=== PATIENT | female | born 1965 | race Caucasian/White ===

== ENCOUNTER → 2017-05-15 | Outpatient (REF) | payer BC ==
[2017-05-15 12:37] LABS: HEMATOCRIT 38.3 % (36.0-47.0); HEMOGLOBIN 12.7 g/dl (12.0-16.0); MEAN CORPUSCULAR HEMOGLOBIN 31.6 pg (27.0-33.0); MEAN CORPUSCULAR HGB CONC 33.2 g/dl (32.0-36.5); MEAN CORPUSCULAR VOLUME 95.3 fl (80.0-96.0); PLATELET COUNT, AUTOMATED 255 10^3/uL (150-450); RED BLOOD COUNT 4.02 10^6/uL (4.00-5.40); RED CELL DISTRIBUTION WIDTH 13.3 % (11.5-14.5); WHITE BLOOD COUNT 6.5 10^3/uL (4.0-10.0)
[2017-05-15 13:07] LABS: ALBUMIN 3.7 GM/DL (3.2-5.2); ALBUMIN/GLOBULIN RATIO 1.12 (1.00-1.93); ALKALINE PHOSPHATASE 105 U/L (45-117); ALT/SGPT 31 U/L (12-78); ANION GAP 5 MEQ/L (8-16); AST/SGOT 19 U/L (7-37); BILIRUBIN,TOTAL 0.6 MG/DL (0.2-1.0); BLOOD UREA NITROGEN 20 MG/DL (7-18); CALCIUM LEVEL 8.9 MG/DL (8.5-10.1); CARBON DIOXIDE LEVEL 29 MEQ/L (21-32); CHLORIDE LEVEL 104 MEQ/L (98-107); CHOLESTEROL LEVEL 155 MG/DL (<200); CHOLESTEROL RISK RATIO 2.152 (<5); CREATININE FOR GFR 0.92 MG/DL (0.55-1.30); FREE T4 0.88 NG/DL (0.76-1.46); GLOMERULAR FILTRATION RATE > 60.0 (>51); GLUCOSE, FASTING 100 MG/DL (70-100); HDL CHOLESTEROL 72 MG/DL (>40); LDL CHOLESTEROL 65.4 MG/DL (<100); NON-HDL-C 83 MG/DL; POTASSIUM SERUM 4.5 MEQ/L (3.5-5.1); SODIUM LEVEL 138 MEQ/L (136-145); TRIGLYCERIDES LEVEL 88 MG/DL (<150)
[2017-05-15 13:26] LABS: ESTIMATED AVERAGE GLUCOSE 111 MG/DL (60-110); HEMOGLOBIN A1c 5.5 %
[2017-05-15 14:09] LABS: CREATININE, URINE 61.2 MG/DL; MALB URINE SIEMENS < 5.0 MG/L; MAU/CREAT RATIO 8.1 MCG/MG (0.0-30.0)
== END ==
LOC: M SFHCADAM 09:58
DX: R73.01 Impaired fasting glucose (principal); I48.2 Chronic atrial fibrillation; Z86.73 Personal history of transient ischemic attack (TIA), and cerebral infarction without residual deficits; I10 Essential (primary) hypertension
CPT/HCPCS: 84443

== ENCOUNTER → 2017-05-20 | Outpatient (CLI) | payer BC | LOC: M ADAMS 15:24 | DX: M25.741 Osteophyte, right hand (principal); M25.731 Osteophyte, right wrist; S69.91XA Unspecified injury of right wrist, hand and finger(s), initial encounter; X58.XXXA Exposure to other specified factors, initial encounter; Y92.9 Unspecified place or not applicable | CPT/HCPCS: 73110 ==

== ENCOUNTER → 2017-11-06 | Outpatient (REF) | payer BC ==
[2017-11-06 13:53] LABS: ALBUMIN 3.5 GM/DL (3.2-5.2); ALBUMIN/GLOBULIN RATIO 1.03 (1.00-1.93); ALKALINE PHOSPHATASE 105 U/L (45-117); ALT/SGPT 29 U/L (12-78); ANION GAP 11 MEQ/L (8-16); AST/SGOT 21 U/L (7-37); BILIRUBIN,TOTAL 0.9 MG/DL (0.2-1.0); BLOOD UREA NITROGEN 16 MG/DL (7-18); CALCIUM LEVEL 8.7 MG/DL (8.5-10.1); CARBON DIOXIDE LEVEL 24 MEQ/L (21-32); CHLORIDE LEVEL 103 MEQ/L (98-107); CREATININE FOR GFR 0.81 MG/DL (0.55-1.30); FREE T4 0.95 NG/DL (0.76-1.46); GLOMERULAR FILTRATION RATE > 60.0 (>51); GLUCOSE, FASTING 100 MG/DL (70-100); POTASSIUM SERUM 4.6 MEQ/L (3.5-5.1); SODIUM LEVEL 138 MEQ/L (136-145); TOTAL PROTEIN 6.9 GM/DL (6.4-8.2)
== END ==
LOC: M SFHCADAM 07:47
DX: S69.91XA Unspecified injury of right wrist, hand and finger(s), initial encounter (principal); E03.9 Hypothyroidism, unspecified; I10 Essential (primary) hypertension; I48.2 Chronic atrial fibrillation; X58.XXXA Exposure to other specified factors, initial encounter; Y92.9 Unspecified place or not applicable
CPT/HCPCS: 84443

== ENCOUNTER → 2018-04-07 | Outpatient (REF) | payer BC ==
[~2018-04-07] MED LIST: ALBU17IN INH; AMIO200T PO; ANOR1AER INH; ATOR80TA59 PO; BUPR150T5 PO; CARV25TA PO; CARV6.25 PO; CETI10TA PO; DRIS50003 PO; ELIQ5TAB PO; ESCI10TA2 PO; FLEC10TA PO; FLUT11IN INH; FURO20TA2 PO; LEVA1TAB2 PO; LISI10TA4 PO; MONT10TA2 PO; VITA100067 PO; VITATAB11 PO
[2018-04-07 13:29] LABS: CREATININE, URINE 91.9 MG/DL; MALB URINE SIEMENS 6.1 MG/L; MAU/CREAT RATIO 6.6 MCG/MG (0.0-30.0)
[2018-04-07 13:31] LABS: HEMOGLOBIN A1c 5.8 %
[2018-04-07 13:33] LABS: ALBUMIN 3.9 GM/DL (3.2-5.2); ALT/SGPT 27 U/L (12-78); BILIRUBIN,TOTAL 0.7 MG/DL (0.2-1.0); BLOOD UREA NITROGEN 23 MG/DL (7-18); CARBON DIOXIDE LEVEL 29 MEQ/L (21-32); CHLORIDE LEVEL 103 MEQ/L (98-107); CHOLESTEROL LEVEL 154 MG/DL (<200); CHOLESTEROL RISK RATIO 2.483 (<5); CREATININE FOR GFR 0.87 MG/DL (0.55-1.30); FREE T4 1.17 NG/DL (0.76-1.46); GLOMERULAR FILTRATION RATE > 60.0 (>51); GLUCOSE, FASTING 107 MG/DL (70-100); HDL CHOLESTEROL 62 MG/DL (>40); LDL CHOLESTEROL 76 MG/DL (<100); NON-HDL-C 92 MG/DL; SODIUM LEVEL 137 MEQ/L (136-145); TOTAL PROTEIN 7.1 GM/DL (6.4-8.2); TRIGLYCERIDES LEVEL 82 MG/DL (<150)
== END ==
LOC: M SFHCADAM 09:00
PROVIDERS: ATTEND Physician Assistant
DX: I48.2 Chronic atrial fibrillation (principal); I10 Essential (primary) hypertension; E03.9 Hypothyroidism, unspecified; R73.01 Impaired fasting glucose

== ENCOUNTER → 2018-04-13 | Outpatient (REF) | payer BC ==
[2018-04-13 18:14] LABS: APPEARANCE, URINE CLEAR (CLEAR); BACTERIA, URINE AUTO NEGATIVE (NEGATIVE); BILIRUBIN, URINE AUTO NEGATIVE (NEGATIVE); BLOOD, URINE BLOOD NEGATIVE (NEGATIVE); COLOR, URINE YELLOW (YELLOW); GLUCOSE, URINE (UA) AUTO NEGATIVE (NEGATIVE); KETONE, URINE AUTO NEGATIVE (NEGATIVE); LEUKOCYTE ESTERASE, URINE AUTO NEGATIVE (NEGATIVE); NITRITE, URINE AUTO NEGATIVE (NEGATIVE); PROTEIN, URINE AUTO NEGATIVE (NEGATIVE); RBC, URINE AUTO 1 /HPF (0-3); SPECIFIC GRAVITY URINE AUTO 1.002 (1.002-1.035); SQUAMOUS EPITHELIAL CELL UR AU 0 /HPF (0-6); UROBILINOGEN, URINE AUTO 0.2 mg/dL (0.0-2.0); WBC, URINE AUTO 0 /HPF (0-3)
== END ==
LOC: M SFHCADAM 13:51
PROVIDERS: ATTEND Physician Assistant
DX: N39.41 Urge incontinence (principal)

== ENCOUNTER → 2018-10-26 | Outpatient (REF) | payer BC ==
[2018-10-26 12:52] LABS: HEMATOCRIT 38.6 % (36.0-47.0); HEMOGLOBIN 12.5 g/dl (12.0-15.5); MEAN CORPUSCULAR HGB CONC 32.4 g/dl (32.0-36.5); MEAN CORPUSCULAR VOLUME 95.8 fl (80.0-96.0); PLATELET COUNT, AUTOMATED 279 10^3/uL (150-450); RED BLOOD COUNT 4.03 10^6/uL (4.00-5.40); WHITE BLOOD COUNT 8.7 10^3/uL (4.0-10.0)
[2018-10-26 13:13] LABS: ALBUMIN 3.6 GM/DL (3.2-5.2); ALT/SGPT 27 U/L (12-78); BILIRUBIN,TOTAL 0.9 MG/DL (0.2-1.0); BLOOD UREA NITROGEN 13 MG/DL (7-18); CALCIUM LEVEL 9.5 MG/DL (8.5-10.1); CARBON DIOXIDE LEVEL 29 MEQ/L (21-32); CHLORIDE LEVEL 106 MEQ/L (98-107); CREATININE FOR GFR 0.83 MG/DL (0.55-1.30); GLOMERULAR FILTRATION RATE > 60.0 (>51); GLUCOSE, FASTING 110 MG/DL (70-100); POTASSIUM SERUM 4.7 MEQ/L (3.5-5.1); SODIUM LEVEL 140 MEQ/L (136-145); TOTAL PROTEIN 6.8 GM/DL (6.4-8.2)
== END ==
LOC: M SFHCADAM 07:59
PROVIDERS: ATTEND Physician Assistant
DX: I48.2 Chronic atrial fibrillation (principal); I10 Essential (primary) hypertension

== ENCOUNTER → 2018-11-22 | Outpatient (CLI) | payer BC ==
--- NOTE | 2018-11-22 11:55 | REPMRS ---
Patient History The patient states she has not had a clinical breast exam in over a year. No known family history of cancer. 3D TOMOSYNTHESIS WAS PERFORMED. [facility] lifetime risk for breast cancer is 9.1%. [facility] Woman Screen Mammo: November 22, 2018 - Exam #: [id number] Bilateral CC and MLO view(s) were taken. Technologist: Kendy Simpson, Technologist FINDINGS: The breast tissue is heterogeneously dense. This may lower the sensitivity of mammography. There has been no change in the appearance of the mammogram from the prior studies. There is a moderate amount of residual fibroglandular tissue which is fairly symmetric. There is no interval development of dominant mass, areas of architectural distortion, or clustered microcalcification typical of malignancy. Assessment: BI-RADS/ACR category 1 mammogram. Negative Mammogram. Recommendation Routine screening mammogram in 1 year (for women over age 40). This mammogram was interpreted with the aid of an FDA-approved computer-aided dectection system. Electronically Signed By: Varinder Bartholomew MD 11/22/18 0105
== END ==
LOC: M WHC 10:58
PROVIDERS: ATTEND Physician Assistant
DX: Z12.31 Encounter for screening mammogram for malignant neoplasm of breast (principal)

== ENCOUNTER → 2019-04-23 | Outpatient (CLI) | payer BC ==
[~2019-04-23] MED LIST changes: -MONT10TA2 PO; +MONT10TA4 PO
== END ==
LOC: M ADAMS 12:54
PROVIDERS: ATTEND Physician Assistant
DX: I10 Essential (primary) hypertension (principal); E03.9 Hypothyroidism, unspecified; R73.01 Impaired fasting glucose

== ENCOUNTER → 2019-04-23 | Outpatient (REF) | payer BC ==
[2019-04-23 17:53] LABS: HEMATOCRIT 39.6 % (36.0-47.0); HEMOGLOBIN 12.9 g/dl (12.0-15.5); MEAN CORPUSCULAR HEMOGLOBIN 31.7 pg (27.0-33.0); MEAN CORPUSCULAR HGB CONC 32.6 g/dl (32.0-36.5); MEAN CORPUSCULAR VOLUME 97.3 fl (80.0-96.0); PLATELET COUNT, AUTOMATED 296 10^3/uL (150-450); RED BLOOD COUNT 4.07 10^6/uL (4.00-5.40); WHITE BLOOD COUNT 7.5 10^3/uL (4.0-10.0)
[2019-04-23 18:06] LABS: ALBUMIN 3.9 GM/DL (3.2-5.2); ALT/SGPT 33 U/L (12-78); BILIRUBIN,TOTAL 0.8 MG/DL (0.2-1.0); BLOOD UREA NITROGEN 20 MG/DL (7-18); CALCIUM LEVEL 9.5 MG/DL (8.5-10.1); CARBON DIOXIDE LEVEL 29 MEQ/L (21-32); CHLORIDE LEVEL 103 MEQ/L (98-107); CHOLESTEROL LEVEL 162 MG/DL (<200); CHOLESTEROL RISK RATIO 2.347 (<5); CREATININE FOR GFR 0.79 MG/DL (0.55-1.30); FREE T4 1.14 NG/DL (0.76-1.46); GLOMERULAR FILTRATION RATE > 60.0 (>51); GLUCOSE, FASTING 114 MG/DL (70-100); HDL CHOLESTEROL 69 MG/DL (>40); LDL CHOLESTEROL 73 MG/DL (<100); NON-HDL-C 93 MG/DL; POTASSIUM SERUM 4.7 MEQ/L (3.5-5.1); SODIUM LEVEL 136 MEQ/L (136-145); TOTAL PROTEIN 7.1 GM/DL (6.4-8.2); TRIGLYCERIDES LEVEL 102 MG/DL (<150)
[2019-04-23 18:23] LABS: HEMOGLOBIN A1c 5.5 %
[2019-04-23 18:35] LABS: CREATININE, URINE 99.2 MG/DL
== END ==
LOC: M SFHCADAM 09:42
PROVIDERS: ATTEND Physician Assistant
DX: I48.20 Chronic atrial fibrillation, unspecified (principal); I10 Essential (primary) hypertension; E03.9 Hypothyroidism, unspecified; R73.01 Impaired fasting glucose; Z86.73 Personal history of transient ischemic attack (TIA), and cerebral infarction without residual deficits

== ENCOUNTER → 2019-11-29 | Outpatient (REF) | payer BC ==
[~2019-11-29] MED LIST changes: -AMIO200T PO; +AMIO200T3 PO
[2019-11-29 14:10] LABS: HEMOGLOBIN A1c 5.4 %
[2019-11-29 15:14] LABS: ALBUMIN 3.5 GM/DL (3.2-5.2); BILIRUBIN,TOTAL 0.6 MG/DL (0.2-1.0); BLOOD UREA NITROGEN 16 MG/DL (7-18); CALCIUM LEVEL 9.2 MG/DL (8.5-10.1); CARBON DIOXIDE LEVEL 24 MEQ/L (21-32); CHLORIDE LEVEL 105 MEQ/L (98-107); CREATININE FOR GFR 0.76 MG/DL (0.55-1.30); GLOMERULAR FILTRATION RATE > 60.0 (>51); GLUCOSE, FASTING 110 MG/DL (70-100); POTASSIUM SERUM 5.2 MEQ/L (3.5-5.1); SODIUM LEVEL 135 MEQ/L (136-145); TOTAL PROTEIN 6.6 GM/DL (6.4-8.2)
[2019-11-29 17:46] LABS: ALT/SGPT 26 U/L (12-78)
== END ==
LOC: M SFHCADAM 12:40
PROVIDERS: ATTEND Physician Assistant
DX: R73.01 Impaired fasting glucose (principal); I48.20 Chronic atrial fibrillation, unspecified; E03.9 Hypothyroidism, unspecified

== ENCOUNTER 2020-02-02 12:02 | Emergency (ER) | payer BC ==
[~2020-02-02] VITALS: Ht 167.6 cm; Wt 127.3 kg
[~2020-02-02 12:02] MED LIST changes: -MONT10TA4 PO; +MONT5TAB2 PO
[2020-02-02] MEDS ORDERED: VENL75CA47 (12:19)
--- NOTE | 2020-02-02 12:52 | REP ---
INDICATION: CHEST PAIN. COMPARISON: Comparison radiograph February 20, 2016.. TECHNIQUE: Semi-erect AP portable chest radiograph. FINDINGS: Monitoring electrodes are seen. The lungs are symmetrically aerated and clear. Pleural angles are sharp. Heart is mildly prominent but unchanged. Pulmonary vasculature is not increased. IMPRESSION: Mildly prominent heart. No infiltrate seen. Otherwise no acute disease. <Electronically signed by Farshad Lama > 02/02/20 [id number]
[2020-02-02 12:53] LABS: BASO % 0.5 % (0.0-1.0); EOS # 0.1 10^3/uL (0.0-0.5); EOS % 1.4 % (0.0-3.0); HEMATOCRIT 38.8 % (36.0-47.0); HEMOGLOBIN 12.8 g/dl (12.0-15.5); LYMPH # 1.5 10^3/uL (1.5-5.0); LYMPH % 19.3 % (24.0-44.0); MEAN CORPUSCULAR HEMOGLOBIN 31.1 pg (27.0-33.0); MEAN CORPUSCULAR VOLUME 94.2 fl (80.0-96.0); MONO # 0.7 10^3/uL (0.0-0.8); MONO % 8.5 % (0.0-5.0); NEUTROPHILS # 5.4 10^3/uL (1.5-8.5); NEUTROPHILS % 69.9 % (36.0-66.0); PLATELET COUNT, AUTOMATED 281 10^3/uL (150-450); RED BLOOD COUNT 4.12 10^6/uL (4.00-5.40); WHITE BLOOD COUNT 7.7 10^3/uL (4.0-10.0)
[2020-02-02 13:20] LABS: BLOOD UREA NITROGEN 19 MG/DL (7-18); CALCIUM LEVEL 9.7 MG/DL (8.5-10.1); CARBON DIOXIDE LEVEL 26 MEQ/L (21-32); CHLORIDE LEVEL 102 MEQ/L (98-107); CK-MB VALUE MASS 2.1 NG/ML (<3.6); CPK CREATINE PHOSPHOKINASE 113 U/L (26-192); CREATININE FOR GFR 0.84 MG/DL (0.55-1.30); GLOMERULAR FILTRATION RATE > 60.0 (>51); GLUCOSE, FASTING 109 MG/DL (70-100); MB/CK RELATIVE INDEX 1.86 (< OR =4); POTASSIUM SERUM 4.1 MEQ/L (3.5-5.1); SODIUM LEVEL 135 MEQ/L (136-145); TROPONIN I < 0.02 NG/ML (< 0.10)
[2020-02-02] MEDS ORDERED: ISOVUE-370 76% 100ML VIAL As Ordered ONE (13:41)
--- NOTE | 2020-02-02 14:06 | REP ---
INDICATION: left chest pain r/o PE. COMPARISON: None. TECHNIQUE: Contrast dose: 75 ML of Isovue [address] technique: Helical scanning is acquired and overlapping 1.5 mm and contiguous 3 mm axial images are reformatted. In addition, maximum intensity projection and multiplanar re-formation images are generated in sagittal and coronal imaging projections. FINDINGS: There is good opacification in the pulmonary arterial tree. There is no evidence of vessel cut off or filling defect to suggest pulmonary embolus. Homogeneous opacity is seen in the thoracic aorta. There is no evidence of aneurysm or dissection. Lung window settings demonstrate no evidence of infiltrate. No pulmonary mass lesion is seen. No significant lung nodule is appreciated. There is no evidence of pleural or pericardial effusion. No hilar or mediastinal mass or adenopathy is seen. Mitral annular calcification is noted. In the upper abdomen, the adrenal glands are seen to be normal bilaterally. The visualized upper abdominal structures are otherwise unremarkable. No bony destructive lesion is seen. IMPRESSION: No CT evidence of pulmonary embolus. No active cardiopulmonary disease. <Electronically signed by Farshad Lama > 02/02/20 [id number]
[2020-02-02 19:30] VITALS: BP 121/60
[2020-02-02 19:32] LABS: CK-MB VALUE MASS 1.6 NG/ML (<3.6); CPK CREATINE PHOSPHOKINASE 108 U/L (26-192); MB/CK RELATIVE INDEX 1.48 (< OR =4); TROPONIN I < 0.02 NG/ML (< 0.10)
--- NOTE | 2020-02-03 08:39 | ECGEPIP ---
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
--- NOTE | 2020-02-03 08:45 | ECGEPIP ---
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
== END 2020-02-02 19:53 | disposition home or self-care (01) ==
LOC: M ED 12:02
DX: R07.89 Other chest pain (principal); R94.31 Abnormal electrocardiogram [ECG] [EKG]; I48.91 Unspecified atrial fibrillation; J44.9 Chronic obstructive pulmonary disease, unspecified; G47.33 Obstructive sleep apnea (adult) (pediatric); I10 Essential (primary) hypertension; E78.5 Hyperlipidemia, unspecified; Z79.899 Other long term (current) drug therapy; Z88.0 Allergy status to penicillin; Z87.820 Personal history of traumatic brain injury; Z82.49 Family history of ischemic heart disease and other diseases of the circulatory system
CPT/HCPCS: 36415; 71045; 71275; 80048; 82550; 82553; 84484; 85025; 93005; 93041; 94760; 99285; Q9967

== ENCOUNTER → 2020-07-10 | Outpatient (REF) | payer BC ==
[~2020-07-10] MED LIST changes: +ESCI10TA16 PO; -ESCI10TA2 PO; +LISI10TA22 PO; -LISI10TA4 PO; +MONT10TA10 PO; -MONT5TAB2 PO; +VENL75CA47
[2020-07-11 13:08] LABS: HEMATOCRIT 40.3 % (36.0-47.0); MEAN CORPUSCULAR HEMOGLOBIN 31.5 pg (27.0-33.0); MEAN CORPUSCULAR HGB CONC 32.3 g/dl (32.0-36.5); MEAN CORPUSCULAR VOLUME 97.6 fl (80.0-96.0); PLATELET COUNT, AUTOMATED 294 10^3/uL (150-450); RED BLOOD COUNT 4.13 10^6/uL (4.00-5.40); WHITE BLOOD COUNT 10.4 10^3/uL (4.0-10.0)
[2020-07-11 13:29] LABS: HEMOGLOBIN A1c 5.5 %
[2020-07-11 14:20] LABS: ALBUMIN 3.8 GM/DL (3.2-5.2); ALT/SGPT 27 U/L (12-78); BILIRUBIN,TOTAL 0.6 MG/DL (0.2-1.0); BLOOD UREA NITROGEN 21 MG/DL (7-18); CALCIUM LEVEL 9.8 MG/DL (8.5-10.1); CARBON DIOXIDE LEVEL 27 MEQ/L (21-32); CHLORIDE LEVEL 103 MEQ/L (98-107); CHOLESTEROL LEVEL 174 MG/DL (<200); CREATININE FOR GFR 0.76 MG/DL (0.55-1.30); FREE T4 1.02 NG/DL (0.76-1.46); GLOMERULAR FILTRATION RATE > 60.0 (>51); GLUCOSE, FASTING 90 MG/DL (70-100); HDL CHOLESTEROL 78 MG/DL (>40); LDL CHOLESTEROL 80 MG/DL (<100); NON-HDL-C 96 MG/DL; POTASSIUM SERUM 5.2 MEQ/L (3.5-5.1); SODIUM LEVEL 137 MEQ/L (136-145); THYROID STIMULATING HORMONE 0.977 uIU/ML (0.358-3.740); TOTAL PROTEIN 6.9 GM/DL (6.4-8.2); TRIGLYCERIDES LEVEL 80 MG/DL (<150)
[2020-07-11 14:24] LABS: CREATININE, URINE 22.9 MG/DL; MALB URINE SIEMENS < 5.0 MG/L; MAU/CREAT RATIO 21.8 MCG/MG (0.0-30.0)
== END ==
LOC: M SFHCADAM 14:54
PROVIDERS: ATTEND Physician Assistant
DX: R73.01 Impaired fasting glucose (principal); I10 Essential (primary) hypertension; E03.9 Hypothyroidism, unspecified

== ENCOUNTER 2020-09-20 16:35 | Inpatient (IN) | payer BC ==
[~2020-09-20] VITALS: Ht 167.6 cm; Wt 136.2 kg
[~2020-09-20 16:35] MED LIST changes: +FLEC100T27 PO; -FLEC10TA PO
[2020-09-20] MEDS ORDERED: MONT10TA10 (16:45)
--- NOTE | 2020-09-20 18:07 | REP ---
INDICATION: CHEST PAIN. COMPARISON: CTA and portable chest 02/02/2020 TECHNIQUE: AP portable seated FINDINGS: Lungs are well inflated. CP angles are sharply defined. No definite effusion, lateral pleural thickening apical scar or pneumothorax. Some vascular redistribution noted with pulmonary venous hypertension some underlying fibrosis is present which makes early interstitial edema difficult to exclude heavier markings in the bases may reflect some basilar atelectasis, patchy infiltrate or edema. Left atrium is mildly enlarged. Overall heart size upper limits of normal but slightly more prominent than prior exam. Bones with degenerative changes in the spine and shoulders. IMPRESSION: 1. Some vascular redistribution with engorgement of upper lobe vessels. Some mild underlying interstitial changes makes early interstitial edema difficult to exclude. Some heavier markings are seen in the bases. Patchy atelectasis, early infiltrates or alveolar edema. No gross effusion. 2. The aorta is mildly tortuous without aneurysm. Heart size is somewhat more prominent compared to January 2020 and with left atrial enlargement. No gross cardiomegaly. <Electronically signed by Elijah Benz > 09/20/20 [id number]
[2020-09-20] MEDS ORDERED: AMIODARONE HCL 150 MG in IV 1 EA IV STA ×2 (18:09→19:11)
[2020-09-20 19:10] LABS: BASO # 0.1 10^3/uL (0.0-0.2); BASO % 0.5 % (0.0-1.0); EOS # 0.2 10^3/uL (0.0-0.5); EOS % 1.5 % (0.0-3.0); HEMOGLOBIN 13.9 g/dl (12.0-15.5); MEAN CORPUSCULAR HEMOGLOBIN 31.1 pg (27.0-33.0); MEAN CORPUSCULAR HGB CONC 33.1 g/dl (32.0-36.5); MONO # 0.7 10^3/uL (0.0-0.8); MONO % 5.9 % (2.0-8.0); NEUTROPHILS # 8.1 10^3/uL (1.5-8.5); NEUTROPHILS % 73.6 % (36.0-66.0); PLATELET COUNT, AUTOMATED 260 10^3/uL (150-450); RED BLOOD COUNT 4.47 10^6/uL (4.00-5.40)
[2020-09-20 19:47] LABS: ALBUMIN 3.8 GM/DL (3.2-5.2); BILIRUBIN,DIRECT 0.3 MG/DL (0.0-0.2); BILIRUBIN,TOTAL 1.1 MG/DL (0.2-1.0); THYROID STIMULATING HORMONE 1.19 uIU/ML (0.358-3.740)
[2020-09-20] MEDS ORDERED: CARVedilol 6.25 MG TAB PO SCH (21:00)
[2020-09-20 21:48] LABS: RSV AMPLIFICATION NEGATIVE (NEGATIVE)
[2020-09-20] MEDS ORDERED: METOPROLOL TART 25 MG TABLET PO ONE (22:05)
[2020-09-20] MEDS ORDERED: NS 1,000 ML IV ONE (22:30)
[2020-09-20] MEDS ORDERED: atenoloL 50 MG TAB PO ONE (22:35)
--- NOTE | 2020-09-20 22:54 | HPEPDOC ---
[facility] Medical History & Physical Date of Admission Sep 20, 2020 Date of Service: Sep 20, 2020 Attending Physician: BOB DIAZ MD History and Physical CHIEF COMPLAINT: [54 y/o female sent to ED by pcp for a-fib] HISTORY OF PRESENT ILLNESS: [This is a 54 y/o female with a pmh of cva, a-fib s/p ablation, htn, hld, asthma, jordy on nightly cpap who presents to the ED after being sent here by pcp for being noted to be in a-fib with rapid ventricular response. Patient states that over the past few days, she has noticed increase in fatigue and sob. Patients states that she had been using her rescue inhaler and felt as though it was her asthma acting up. Patient states that she made a pcp appointment for this reason but was found to be in a-fib upon cardiac auscultation. Patient admits to some cough that is nonproductive. Patient states that she is not currently having any chest pain, chest tightness palpitations, n/v/d/c, dysuria, syncope, headaches, paresthesias, fevers, chills. Patient found to be in a-fib with rvr upon presentation to the ED with rates as high as 160s. ] PAST MEDICAL HISTORY: 1. [See HPI PAST SURGICAL HISTORY: 1. [Cardiac ablation]. 2. [C section x2]. 3. [Tubal ligation 4. Breast biopsy]. SOCIAL HISTORY: Tobacco use:[Denies] ETOH: [Denies] Illicit drug use: [Denies] FAMILY HISTORY: Father - dm, htn Mother - htn ALLERGIES: Please see below. REVIEW OF SYSTEMS: CONSTITUTIONAL: [See HPI]. HEENT: [Denies uri type sx]. CARDIOVASCULAR: [See HPI]. RESPIRATORY: [See HPI]. GASTROINTESTINAL: [See HPI]. GENITOURINARY: [See HPI]. SKIN: [Denies rash]. MUSCULOSKELETAL: [Denies acute joint/back pain]. NEUROLOGICAL: [Denies paresthesias, syncope]. ENDOCRINE: [Denies hx of DM]. HEMATOLOGIC/LYMPHATIC: [Admits to occasional epistaxis]. HOME MEDICATIONS: Please see below. PHYSICAL EXAMINATION: VITAL SIGNS: Please see below. GENERAL APPEARANCE: [This is a pleasant 54 y/o female. She is seated on the side of the bed alert and oriented to all questioning. She does not appear in any acute distress.]. HEENT: [No mass or lesion. EOMI. No scleral icterus. Nares patent. Oral mucosa moist]. CARDIOVASCULAR: [Tachy, irregularly irregular rhythm. No murmurs, rubs, g allops]. LUNGS: [Right sided wheezing. Decreased breath sounds]. ABDOMEN: [Soft, nontender]. MUSCULOSKELETAL: [No joint deformity noted]. EXTREMITIES: [Mild nonpitting edema to left lower extremity, patient states this is chronic. No overlying skin changes. Pulses intact.]. NEUROLOGICAL: [Speech clear A+Ox3. No focal deficits.]. PSYCHIATRIC: [Mood and affect appear appropriate.]. LABORATORY DATA: See below. IMAGING: [CXR: FINDINGS: Lungs are well inflated. CP angles are sharply defined. No definite effusion, lateral pleural thickening apical scar or pneumothorax. Some vascular r edistribution noted with pulmonary venous hypertension some underlying fibrosis is present which makes early interstitial edema difficult to exclude heavier markings in the bases may reflect some basilar atelectasis, patchy infiltrate or edema. Left atrium is mildly enlarged. Overall heart size upper limits of normal but slightly more prominent than prior exam. Bones with degenerative changes in the spine and shoulders. IMPRESSION: 1. Some vascular redistribution with engorgement of upper lobe vessels. Some mild underlying interstitial changes makes early interstitial edema difficult to e xclude. Some heavier markings are seen in the bases. Patchy atelectasis, early infiltrates or alveolar edema. No gross effusion. 2. The aorta is mildly tortuous without aneurysm. Heart size is somewhat more prominent compared to January 2020 and with left atrial enlargement. No gross cardiomegaly.] MICROBIOLOGY: Please see below. ASSESSMENT: [This is a 54 y/o female with a pmh of cva, a-fib s/p ablation, htn, hld, asthma, jordy on nightly cpap who presents to the ED after being sent here by pcp for being noted to be in a-fib with rapid ventricular response.]. . PLAN: 1. [A-fib w rvr - patient has hx of a-fib which was treated with ablation in 2015. Patient follows with Dr. Burt - This event of rvr likely onset by asthma exacerbation and/or viral respiratory illness - Rates as high as 160 in the ed - Given 300mg total of iv amiodarone, 37.5mg metoprolol oral and 50mg of atenolol oral so far - Dr. Mckeon consulted by the ED for potential cardioversion - patient already on anticoagulant eliquis - will continue - continue carvedilol tomorrow morning - will keep npo overnight d/t possible procedure - admit to pcu with tele for tx 2. Asthma - does not appear to currently be in acute exacerbation - patient has some mild wheezing, will give xopenex as needed in patient to avoid more tachycardia - i do not feel steroids are indicated at this time, but can be considered if patient becomes more symptomatic - continue montelukast 3. HTN - continue lisinopril, lasix 4. HLD - continue atorvastatin 5. Depression/anxiety - continue effexor DVT prophylaxis - pt on eliquis ]. Vital Signs Vital Signs Date Time Temp Pulse Resp B/P (MAP) Pulse Ox O2 Delivery O2 Flow Rate FiO2 09/20/20 22:19 131 149/82 09/20/20 21:00 98 09/20/20 18:35 16 Room Air 09/20/20 18:33 97.9 Laboratory Data Labs 24H Laboratory Tests 2 09/20/20 18:26: POC Glucose (Misc Panel) 114H, POC Sodium (Misc Panel) 139, POC Potassium (Misc Panel) 4.2, POC Chloride (Misc Panel) 101, POC Total CO2 (Misc Panel) 22.0L, POC Blood Urea Nitrogen (Misc Panel 19, POC Ionized Calcium (Misc Panel) 4.8, POC Creatinine (Misc Panel) 0.9, POC Hematocrit (Misc Panel) 43.0 09/20/20 18:32: Immature Granulocyte % (Auto) 0.5, Neutrophils (%) (Auto) 73.6H, Lymphocytes (%) (Auto) 18.0L, Monocytes (%) (Auto) 5.9, Eosinophils (%) (Auto) 1.5, Basophils (%) (Auto) 0.5, Neutrophils # (Auto) 8.1, Lymphocytes # (Auto) 2.0, Monocytes # (Auto) 0.7, Eosinophils # (Auto) 0.2, Basophils # (Auto) 0.1, Nucleated Red Blood Cells % (auto) 0.0, Total Bilirubin 1.1H, Direct Bilirubin 0.3H, Aspartate Amino Transf (AST/SGOT) 42H, Alanine Aminotransferase (ALT/SGPT) 76, Alkaline Phosphatase 120H, NI-Atd-U-Type Natriuretic Peptide 1232H, Total Protein 7.0, Albumin 3.8, Albumin/Globulin Ratio 1.2, Lipase 89, Thyroid Stimulating Hormone (TSH) 1.190 09/20/20 18:34: POC Troponin I (Misc) 0.01 09/20/20 20:59: Coronavirus (COVID-19)(PCR) NEGATIVE, Influenza Type A (RT-PCR) NEGATIVE, Influenza Type B (RT-PCR) NEGATIVE, Respiratory Syncytial Virus (PCR) NEGATIVE CBC/BMP Laboratory Tests 09/20/20 18:32 Home Medications Scheduled Apixaban (Eliquis) 5 Mg Tab, 5 MG PO BID Atorvastatin Calcium (Atorvastatin Calcium) 80 Mg Tab, 80 MG PO QHS Calcium Carbonate/Vitamin D3 (Calcium 500-Vit D3 200 Tablet) 1 Each Tablet, 1 TAB PO DAILY Carvedilol (Carvedilol) 6.25 Mg Tab, 6.25 MG PO BID Cholecalciferol (Vitamin D3) (Vitamin D3) 1,000 Unit Tablet, 1,000 UNITS PO DAILY Furosemide (Furosemide) 20 Mg Tab, 20 MG PO DAILY Lisinopril (Lisinopril) 10 Mg Tab, 10 MG PO DAILY Montelukast Sodium (Montelukast Sodium) 10 Mg Tablet, 10 MG PO QHS Venlafaxine HCl (Venlafaxine HCl ER) 75 Mg Cap.er.24h, 75 MG PO DAILY Vitamin B Complex (Vitamin B Complex) 1 Each Tablet, 1 TAB PO DAILY Scheduled PRN Albuterol Sulfate (Proair Hfa) 8.5 Gm Hfa.aer.ad, 2 PUFF INH Q4H PRN for SH ORTNESS OF BREATH Allergies Coded Allergies: Penicillins (Verified Allergy, Mild, HIVES, 04/05/20) A-FIB/CHADSVASC A-FIB History Current/History of A-Fib/PAF?: Yes Current PO Anticoag Therapy: Yes SHANTEL RODRIGUEZ Sep 20, 2020 22:54
[2020-09-20] MEDS ORDERED: LEVALBUTEROL HFA 45MCG/ACT 15 GM INHALER INH PRN (22:55)
[2020-09-20] MEDS ORDERED: D31000TA2 PO (22:57)
[2020-09-20] MEDS ORDERED: VITATAB73 PO (22:57)
[2020-09-20] MEDS ORDERED: VENL75CA47 PO (22:57)
[2020-09-20] MEDS ORDERED: PROAAER10 INH (22:57)
[2020-09-20] MEDS ORDERED: MONT10TA10 PO (22:57)
[2020-09-20] MEDS ORDERED: OYST500T92 PO (22:57)
[2020-09-20 23:35] VITALS: BP 96/68
[2020-09-21 00:24] LABS: INR 1.09; PROTHROMBIN TIME 14.3 SECONDS (12.5-14.3)
[2020-09-21 00:25] LABS: PARTIAL THROMBOPLASTIN TIME 31.4 SECONDS (24.2-38.5)
[2020-09-21] MEDS: MONTELUKAST 10 MG TAB PO SCH ×2 (00:27→20:29)
[2020-09-21] MEDS: ATORVASTATIN 20 MG TAB PO SCH ×2 (00:27→20:29)
[2020-09-21] MEDS: APIXABAN 5 MG TAB (ELIQUIS) PO SCH ×3 (01:10→20:30)
[2020-09-21] MEDS ORDERED: NS 500 ML IV ONE (03:15)
[2020-09-21 04:00] VITALS: BP 102/60
[2020-09-21 08:00] VITALS: BP 113/78
[2020-09-21] MEDS: atenoloL 50 MG TAB PO SCH ×2 (08:10→20:31)
[2020-09-21 08:41] LABS: HEMATOCRIT 38.8 % (36.0-47.0); HEMOGLOBIN 12.8 g/dl (12.0-15.5); MEAN CORPUSCULAR HEMOGLOBIN 31.6 pg (27.0-33.0); MEAN CORPUSCULAR VOLUME 95.8 fl (80.0-96.0); PLATELET COUNT, AUTOMATED 222 10^3/uL (150-450); RED BLOOD COUNT 4.05 10^6/uL (4.00-5.40); WHITE BLOOD COUNT 7.8 10^3/uL (4.0-10.0)
[2020-09-21] MEDS ORDERED: FUROSEMIDE 20 MG TAB PO SCH (09:00)
[2020-09-21 09:06] LABS: BLOOD UREA NITROGEN 17 MG/DL (7-18); CALCIUM LEVEL 8.7 MG/DL (8.5-10.1); CARBON DIOXIDE LEVEL 28 MEQ/L (21-32); CHLORIDE LEVEL 108 MEQ/L (98-107); CK-MB VALUE MASS 2.4 NG/ML (<3.6); CPK CREATINE PHOSPHOKINASE 98 U/L (26-192); CREATININE FOR GFR 0.83 MG/DL (0.55-1.30); GLOMERULAR FILTRATION RATE > 60.0 (>51); GLUCOSE, FASTING 120 MG/DL (70-100); MAGNESIUM LEVEL 2.2 MG/DL (1.8-2.4); MB/CK RELATIVE INDEX 2.45 (< OR =4); POTASSIUM SERUM 4.9 MEQ/L (3.5-5.1); SODIUM LEVEL 141 MEQ/L (136-145); TROPONIN I < 0.02 NG/ML (< 0.10)
[2020-09-21] MEDS: VENLAFAXINE **XR** 75MG CAPSULE PO SCH (09:47)
[2020-09-21 12:00] VITALS: BP 113/68
[2020-09-21 12:58] LABS: CK-MB VALUE MASS 2.8 NG/ML (<3.6); CPK CREATINE PHOSPHOKINASE 91 U/L (26-192); MB/CK RELATIVE INDEX 3.08 (< OR =4); TROPONIN I < 0.02 NG/ML (< 0.10)
--- NOTE | 2020-09-21 14:24 | IPNPDOC ---
Text Note Date of Service The patient was seen on 09/21/20. NOTE Subjective: 54-year-old female with past medical history of CVA, A. fib status post ablation, hypertension, hyperlipidemia, asthma, TRINH on nightly CPAP presented to the ED after being sent to the emergency department by her primary care provider after being noted with A. fib with rapid ventricular response. Patient states over the past 2 days she has noticed fatigue and increased shortness of breath. Patient states that she was blaming on the weather and that her asthma is acting up but went to her primary care provider and was found to be in A. fib with RVR. Patient was given her medications and came back to a normal rate. Patient is feeling well today. Review of systems: General: Patient denies fevers HEENT: Patient denies headaches Cardiovascular: Patient denies chest pain Respiratory: Patient denies shortness of breath, cough GI: Patient denies abdominal pain, nausea, vomiting, diarrhea : Patient denies increased frequency or pain with urination Extremities: Patient denies swelling or pain in extremities Neurological: Patient denies numbness or tingling in legs Physical exam: Vitals: See below General: Alert oriented female patient who was resting comfortably in bed when I walked in the room. Patient did not appear to be in any acute distress. HEENT: Normocephalic, atraumatic, moist mucous membranes. Neck: No lymphadenopathy or thyromegaly Cardiac: Regular rate and rhythm, no murmurs, normal S1, normal S2 Pulm: Scattered end expiratory wheezing heard throughout the lung irizarry Abd: Nondistended, nontender to palpation, normal bowel sounds Ext: 1+ pitting edema in the bilateral lower extremities Labs: See below Imaging: Chest x-ray performed on 09/20/2020 was reported to show some vascular redistribution with engorgement of upper lobe vessels. Some mild underlying interstitial changes makes early interstitial edema difficult to exclude. Some heavier markings are seen in the bases. Patchy atelectasis/early infiltrates/alveolar edema. No gross effusion. The aorta is mildly tortuous without aneurysm. Heart size is somewhat more prominent compared to January 2020 with left atrial enlargement. No gross cardiomegaly. Assessment/plan: 54-year-old female who presented to the emergency department with atrial fibrillation status post ablation with rapid ventricular rate which is now back in the normal range. 1. Atrial fibrillation with rapid ventricular response. Patient had an ablation in [address] Burt. Patient's RVR is most likely in the onset of a asthma exacerbation. Patient received 300 mg of IV amiodarone, 37.5 mg metoprolol and 50 mg of atenolol. Patient's rate is controlled. Patient is on anticoagulation with Eliquis. Dr. Mckeon was consulted by the ED for potential cardioversion however, cardioversion was not done as the patient's heart rate has come back into the normal range although she is still in atrial fibrillation. 2. Asthma. She does not appear to be in any acute exacerbation today. Nebulizers have been given. Steroids or not indicated at this time. Continue home medications. 3. Hypertension. Continue lisinopril Lasix. 4. Hyperlipidemia. Continue atorvastatin 5. Depression/anxiety. Continue Effexor. DVT Prophylaxis: Patient is on Eliquis Disposition: Pending improvement in the patient's rate. Possible discharge tomorrow. VS,Jolantae, I+O VS, Libanbone, I+O Laboratory Tests 09/20/20 18:32 09/21/20 08:26 Vital Signs Date Time Temp Pulse Resp B/P (MAP) Pulse Ox O2 Delivery O2 Flow Rate FiO2 09/21/20 12:00 97.1 99 16 113/68 (83) 95 Room Air I&O- Last 24 Hours up to 6 AM 09/21/20 06:00 Intake Total 500 ml Output Total 0 ml Balance 500 ml TOMMY MENJIVAR DO Sep 21, 2020 14:24
[2020-09-21 16:00] VITALS: BP 121/85
[2020-09-21 20:00] VITALS: BP 128/80
[2020-09-21 21:44] LABS: CK-MB VALUE MASS 1.5 NG/ML (<3.6); CPK CREATINE PHOSPHOKINASE 101 U/L (26-192); MB/CK RELATIVE INDEX 1.49 (< OR =4); TROPONIN I < 0.02 NG/ML (< 0.10)
[2020-09-22] VITALS: BP 128/77
[2020-09-22 04:00] VITALS: BP 119/89
[2020-09-22 06:14] LABS: HEMATOCRIT 38.3 % (36.0-47.0); HEMOGLOBIN 12.6 g/dl (12.0-15.5); MEAN CORPUSCULAR HEMOGLOBIN 31.7 pg (27.0-33.0); MEAN CORPUSCULAR HGB CONC 32.9 g/dl (32.0-36.5); MEAN CORPUSCULAR VOLUME 96.5 fl (80.0-96.0); PLATELET COUNT, AUTOMATED 213 10^3/uL (150-450); RED BLOOD COUNT 3.97 10^6/uL (4.00-5.40); WHITE BLOOD COUNT 7.9 10^3/uL (4.0-10.0)
[2020-09-22 06:31] LABS: BLOOD UREA NITROGEN 17 MG/DL (7-18); CALCIUM LEVEL 8.6 MG/DL (8.5-10.1); CARBON DIOXIDE LEVEL 28 MEQ/L (21-32); CHLORIDE LEVEL 108 MEQ/L (98-107); CREATININE FOR GFR 0.81 MG/DL (0.55-1.30); GLOMERULAR FILTRATION RATE > 60.0 (>51); GLUCOSE, FASTING 119 MG/DL (70-100); MAGNESIUM LEVEL 2.4 MG/DL (1.8-2.4); POTASSIUM SERUM 4.9 MEQ/L (3.5-5.1); SODIUM LEVEL 142 MEQ/L (136-145)
[2020-09-22 08:00] VITALS: BP 129/89
[2020-09-22] MEDS: VENLAFAXINE **XR** 75MG CAPSULE PO SCH (08:07)
[2020-09-22] MEDS: atenoloL 50 MG TAB PO SCH (08:07)
[2020-09-22] MEDS: APIXABAN 5 MG TAB (ELIQUIS) PO SCH ×2 (08:07→20:07)
[2020-09-22 12:00] VITALS: BP 127/90
[2020-09-22] MEDS ORDERED: METOPROLOL TART 25 MG TABLET PO ONE (13:00)
--- NOTE | 2020-09-22 14:44 | IPNPDOC ---
Text Note Date of Service The patient was seen on 09/22/20. NOTE Subjective: Patient is a 54-year-old female presented from her primary care belen patterson's office for atrial fibrillation with rapid ventricular response. Patient did well throughout most of the day yesterday however, patient was having some runs of rapid ventricular response earlier today. This was especially apparent when the patient would walk around. With any light activi ty, the patient's heart rate would go up into the 130s to 150s. Patient was also feeling short of breath while performing these light activities. Patient is doing well at rest and feels otherwise well today. Review of systems: General: Patient denies fevers HEENT: Patient denies headaches Cardiovascular: Patient denies chest pain Respiratory: Patient reports shortness of breath with exertion but denies shortness of breath at rest. GI: Patient denies abdominal pain, nausea, vomiting, diarrhea : Patient denies increased frequency or pain with urination Extremities: Patient denies swelling or pain in extremities Neurological: Patient denies numbness or tingling in legs Physical exam: Vitals: See below General: Alert and oriented female patient who was sitting in the bed when I walked in. Patient was able to get up and walk around the hallways but did appear mildly short of breath while doing this. While watching the monitoring engineer, patient's heart rate will go from the 80s and 90s up until the 120s to 140s. Patient not appear to be in any acute distress HEENT: Normocephalic, atraumatic, moist mucous membranes. Neck: No lymphadenopathy or thyromegaly Cardiac: Irregularly irregular rhythm with a nontachycardic rate, no murmurs, normal S1, normal S2 Pulm: Clear to auscultation bilaterally. No wheezes, rhonchi, rales Abd: Nondistended, nontender to palpation, normal bowel sounds Ext: No edema bilateral lower extremities Labs: See below Imaging: No new imaging has been performed Assessment/plan: 54-year-old female presented the emergency department with atrial fibrillation post ablation with rapid ventricular rate who is now back in the normal range. 1. Atrial fibrillation with rapid ventricular response. Patient had ablation [address] Burt. Patient's RVR is most likely the onset and has an exacerbation. Patient received 30 mg of IV amiodarone, 37 have milligrams metoprolol and 50 mg of atenolol. Patient's rate is controlled at rest but not with exertion. Patient is on Eliquis for anticoagulation. Patient did not require cardioversion in the emergency department. Her atenolol has been discontinued and the patient is now on metoprolol 25 mg every 6 hours to see if we get better rate control for her at this point. 2. Asthma. Patient does not appear to be in any exacerbation today. Nebulizers as needed. I do not believe steroids are indicated at this time. 3. Hypertension. Continue lisinopril and Lasix. 4. Hyperlipidemia. Continue atorvastatin. 5. Depression/anxiety. Continue Effexor. DVT Prophylaxis: Full anticoagulation with Eliquis Disposition: Pending improvement in the patient's rate with exertion. Possible discharge tomorrow VS,Frank, I+O VS, Frank, I+O Laboratory Tests 09/22/20 05:30 Vital Signs Date Time Temp Pulse Resp B/P (MAP) Pulse Ox O2 Delivery O2 Flow Rate FiO2 09/22/20 13:49 95 126/99 09/22/20 12:00 96.4 20 97 Room Air I&O- Last 24 Hours up to 6 AM 09/22/20 05:59 Intake Total 1800 ml Output Total 2900 ml Balance -1100 ml TOMMY MENJIVAR DO Sep 22, 2020 14:44
[2020-09-22] MEDS ORDERED: METOPROLOL TART 25 MG TABLET PO SCH (18:00)
[2020-09-22] MEDS: METOPROLOL TART 25 MG TABLET PO SCH (18:07)
[2020-09-22 20:00] VITALS: BP 129/87
[2020-09-22] MEDS: MONTELUKAST 10 MG TAB PO SCH (20:07)
[2020-09-22] MEDS: ATORVASTATIN 20 MG TAB PO SCH (20:07)
--- NOTE | 2020-09-22 21:09 | ECGEPIP ---
[facility] - ED Test Date: 2020-09-20 Pat Name: DEVON REDDY Department: Room: [place] [address] Gender: Female Tailer In: JULIANA : 1965 Requested By: Nenita Jaquez Order Number: [id number] Reading MD: Nenita Jaquez Measurements Intervals [place] Rate: 132 P: DC: QRS: 52 QRSD: 82 T: -21 QT: 318 QTc: 471 Interpretive Statements Atrial fibrillation with rapid ventricular response Nonspecific ST and T wave abnormality 02/02/20 sinus rhythm Electronically Signed on 09-22-2020 21:08:25 EDT by Nenita Jaquez
[2020-09-23] VITALS: BP 130/80
[2020-09-23] MEDS: METOPROLOL TART 25 MG TABLET PO SCH ×2 (00:11→05:08)
[2020-09-23 04:00] VITALS: BP 102/67
[2020-09-23 05:10] LABS: HEMATOCRIT 39.8 % (36.0-47.0); HEMOGLOBIN 12.8 g/dl (12.0-15.5); MEAN CORPUSCULAR HEMOGLOBIN 30.8 pg (27.0-33.0); MEAN CORPUSCULAR HGB CONC 32.2 g/dl (32.0-36.5); MEAN CORPUSCULAR VOLUME 95.7 fl (80.0-96.0); PLATELET COUNT, AUTOMATED 221 10^3/uL (150-450); RED BLOOD COUNT 4.16 10^6/uL (4.00-5.40); WHITE BLOOD COUNT 9.1 10^3/uL (4.0-10.0)
[2020-09-23 05:37] LABS: BLOOD UREA NITROGEN 17 MG/DL (7-18); CALCIUM LEVEL 8.2 MG/DL (8.5-10.1); CARBON DIOXIDE LEVEL 27 MEQ/L (21-32); CHLORIDE LEVEL 109 MEQ/L (98-107); CREATININE FOR GFR 0.84 MG/DL (0.55-1.30); GLOMERULAR FILTRATION RATE > 60.0 (>51); GLUCOSE, FASTING 118 MG/DL (70-100); MAGNESIUM LEVEL 2.4 MG/DL (1.8-2.4); POTASSIUM SERUM 4.4 MEQ/L (3.5-5.1); SODIUM LEVEL 140 MEQ/L (136-145)
[2020-09-23 08:00] VITALS: BP 132/87
[2020-09-23] MEDS: VENLAFAXINE **XR** 75MG CAPSULE PO SCH (08:45)
[2020-09-23] MEDS: APIXABAN 5 MG TAB (ELIQUIS) PO SCH ×2 (08:45→20:21)
[2020-09-23] MEDS ORDERED: AMIODARONE HCL 360 MG in IV 1 EA IV SCH (09:00)
[2020-09-23 12:00] VITALS: BP 125/79
[2020-09-23] MEDS: METOPROLOL TART 50 MG TAB PO SCH ×3 (12:56→23:50)
[2020-09-23] MEDS: AMIODARONE HCL 360 MG in IV 1 EA IV SCH (14:33)
[2020-09-23 16:00] VITALS: BP 121/74
--- NOTE | 2020-09-23 16:12 | IPNPDOC ---
Text Note Date of Service The patient was seen on 09/23/20. NOTE Subjective: Patient is a 54-year-old female who presented from her primary care provider's office for atrial fibrillation with rapid ventricular response. Patient is still having elevated heart rates especially with any mild activity. Today when the patient was seen, her heart rate was in the 110s to 120s. Patient does have some shortness of breath when she exerts herself. Patient is otherwise feeling well. Review of systems: General: Patient denies fevers HEENT: Patient denies headaches Cardiovascular: Patient denies chest pain Respiratory: Patient reports shortness of breath with exertion but denies shortness of breath at rest GI: Patient denies abdominal pain, nausea, vomiting, diarrhea : Patient denies increased frequency or pain with urination Extremities: Patient denies swelling or pain in extremities Neurological: Patient denies numbness or tingling in legs Physical exam: Vitals: See below General: Alert and oriented female patient who was sitting in the bedside chair when I walked in. Patient did not appear to be in any acute distress. HEENT: Normocephalic, atraumatic, moist mucous membranes. Neck: No lymphadenopathy or thyromegaly Cardiac: PEA irregularly irregular rhythm with a tachycardic rate of about 110, no murmurs, normal S1, normal S2 Pulm: Clear to auscultation bilaterally. No wheezes, rhonchi, rales Abd: Nondistended, nontender to palpation, normal bowel sounds Ext: No edema bilateral lower extremities Labs: See below Imaging: No new imaging has been performed Assessment/plan: 54-year-old female presents to the emergency department atrial fibrillation post ablation with rapid ventricular rate who continues to be tachycardic 1. Atrial fibrillation with rapid ventricular response. Patient had ablation [address] Christianson. Patient's RVR is new. Patient has been on 37.5 mg of metoprolol 4 times daily but her heart rate is still elevated. Patient received 300 mg of IV amiodarone in the emergency department. Patient will get stat 2 and 3 of amiodarone. I will speak with the patient's clinical resource coordinator tomorrow morning to see if anything further needs to be done. 2. Asthma. Does not appear to be in exacerbation. Nebulizers as needed. 3. Hypertension. Continue lisinopril and Lasix. 4. Hyperlipidemia. Continue atorvastatin. 5. Depression/anxiety. Continue Effexor. DVT Prophylaxis: Full anticoagulation with Eliquis Disposition: Pending improvement the patient's rate. VS,Frank, I+O VS, Frank, I+O Laboratory Tests 09/23/20 04:49 Vital Signs Date Time Temp Pulse Resp B/P (MAP) Pulse Ox O2 Delivery O2 Flow Rate FiO2 09/23/20 12:56 90 125/79 09/23/20 12:00 97.7 19 100 Room Air I&O- Last 24 Hours up to 6 AM 09/23/20 06:00 Intake Total 1320 ml Output Total 2400 ml Balance -1080 ml TOMMY MENJIVAR DO Sep 23, 2020 16:12
[2020-09-23 19:27] VITALS: BP 112/76
[2020-09-23] MEDS: MONTELUKAST 10 MG TAB PO SCH (20:21)
[2020-09-23] MEDS: ATORVASTATIN 20 MG TAB PO SCH (20:21)
[2020-09-24] VITALS: BP 112/71
[2020-09-24] MEDS: AMIODARONE HCL 360 MG in IV 1 EA IV SCH (03:09)
[2020-09-24 04:00] VITALS: BP 119/78
[2020-09-24 05:29] LABS: HEMATOCRIT 41.9 % (36.0-47.0); HEMOGLOBIN 13.6 g/dl (12.0-15.5); MEAN CORPUSCULAR HEMOGLOBIN 31.3 pg (27.0-33.0); MEAN CORPUSCULAR HGB CONC 32.5 g/dl (32.0-36.5); MEAN CORPUSCULAR VOLUME 96.3 fl (80.0-96.0); PLATELET COUNT, AUTOMATED 245 10^3/uL (150-450); RED BLOOD COUNT 4.35 10^6/uL (4.00-5.40); WHITE BLOOD COUNT 9.8 10^3/uL (4.0-10.0)
[2020-09-24] MEDS: METOPROLOL TART 50 MG TAB PO SCH ×2 (05:56→12:07)
[2020-09-24 05:58] LABS: BLOOD UREA NITROGEN 14 MG/DL (7-18); CALCIUM LEVEL 8.4 MG/DL (8.5-10.1); CARBON DIOXIDE LEVEL 26 MEQ/L (21-32); CHLORIDE LEVEL 109 MEQ/L (98-107); CREATININE FOR GFR 0.93 MG/DL (0.55-1.30); GLOMERULAR FILTRATION RATE > 60.0 (>51); GLUCOSE, FASTING 131 MG/DL (70-100); MAGNESIUM LEVEL 2.3 MG/DL (1.8-2.4); POTASSIUM SERUM 5.1 MEQ/L (3.5-5.1); SODIUM LEVEL 139 MEQ/L (136-145)
[2020-09-24 08:00] VITALS: BP 126/75
[2020-09-24] MEDS: APIXABAN 5 MG TAB (ELIQUIS) PO SCH ×2 (08:06→20:06)
[2020-09-24] MEDS: VENLAFAXINE **XR** 75MG CAPSULE PO SCH (08:06)
--- NOTE | 2020-09-24 09:02 | SKHPN ---
[facility] Progress Note Date of Service/Time Date: Sep 24, 2020 Progress Note SUBJECTIVE: OBJECTIVE: PHYSICAL EXAMINATION: VITAL SIGNS: Please see below. GENERAL: HEENT: CARDIOVASCULAR: LUNGS: ABDOMINAL: EXTREMITIES: NEUROLOGICAL: PSYCHOLOGICAL: LABORATORY DATA: Please see below. IMAGING: DVT prophylaxis: ASSESSMENT: PLAN: . Allergies Coded Allergies: Penicillins (Verified Allergy, Mild, HIVES, 04/05/20) VS, I&O, 24H, Fishbone Vital Signs/I&O Vital Signs Date Time Temp Pulse Resp B/P (MAP) Pulse Ox O2 Delivery O2 Flow Rate FiO2 09/24/20 05:56 85 124/97 09/24/20 04:00 97.1 20 95 NIPPV (BIPAP/CPAP) I&O- Last 24 Hours up to 6 AM 09/24/20 06:00 Intake Total 2836 ml Output Total 4100 ml Balance -1264 ml Laboratory Data 24H LABS Laboratory Tests 2 09/24/20 05:12: Nucleated Red Blood Cells % (auto) 0.0, Anion Gap 4L, Glomerular Filtration Rate > 60.0, Calcium Level 8.4L, Magnesium Level 2.3 CBC/BMP Laboratory Tests 09/24/20 05:12 NIK PETERSON OMS-3 Sep 24, 2020 09:02
--- NOTE | 2020-09-24 09:32 | IPNPDOC ---
Text Note Date of Service The patient was seen on 09/24/20. Patient Name: Tamara Palacios Unit Number: [id number] Date of : 1965 Patient Status: Admitted Inpatient Attending Doctor: Con Urias DO NOTE Text Note Date of Service The patient was seen on 09/24/20. NOTE Subjective: Patient is a 54-year-old female who presented from her primary care provider's office for atrial fibrillation with rapid ventricular response. P atient is still having elevated heart rate especially with any mild exertion. Today when the patient was seen, her heart rate was in the 80s - 90s. Patient is still experiencing shortness of breath with exertion and no chest pain. Patient is otherwise feeling well. Review of systems: General: Patient denies fevers HEENT: Patient denies headaches Cardiovascular: Patient denies chest pain. Rhythm and rate on telemetry @10:00am was regular 3 episodes of tachycardia overnight. Respiratory: Patient reports shortness of breath with exertion but denies shortness of breath at rest GI: Patient denies abdominal pain, nausea, vomiting, diarrhea : Patient denies increased frequency or pain with urination Extremities: Patient denies swelling or pain in extremities Neurological: Patient denies numbness or tingling in legs Labs: See below Imaging: No new imaging has been performed Assessment/plan: 54-year-old female presents to the emergency department atrial fibrillation post ablation with rapid ventricular rate who continues to be tachycardic. 1. Atrial fibrillation with rapid ventricular response. Patient had ablation [address] Christianson. Patient's RVR is new. Patient has been on 37.5 mg of metoprolol 4 times daily but her heart rate is still elevated. Patient received 300 mg of IV amiodarone in the emergency department. 2. Asthma. Does not appear to be in exacerbation. Nebulizers as needed. 3. Hypertension. Continue lisinopril and Lasix. 4. Hyperlipidemia. Continue atorvastatin. 5. Depression/anxiety. Continue Effexor. DVT Prophylaxis: Full anticoagulation with Eliquis VS, Fishbone, I+O VS,Fishbone, I+O VS, Fishbone, I+O Laboratory Tests 09/23/20 04:49 Vital Signs CON URIAS DO Sep 23, 2020 16:12 VS,Fishbone, I+O VS, Fishbone, I+O Laboratory Tests 09/24/20 05:12 Vital Signs Date Time Temp Pulse Resp B/P (MAP) Pulse Ox O2 Delivery O2 Flow Rate FiO2 09/24/20 08:00 96.7 69 18 126/75 (92) 100 Room Air I&O- Last 24 Hours up to 6 AM 09/24/20 06:00 Intake Total 2836 ml Output Total 4100 ml Balance -1264 ml NIK PETERSON S-3 Sep 24, 2020 09:32 CON URIAS DO Sep 24, 2020 18:28
[2020-09-24 12:00] VITALS: BP 121/94
[2020-09-24] MEDS: SODIUM CHLORIDE NASAL 0.65% SPRAY BTL (OCEAN) PRN (15:50)
[2020-09-24 16:00] VITALS: BP 130/82
--- NOTE | 2020-09-24 18:54 | IPNPDOC ---
Text Note Date of Service The patient was seen on 09/24/20. NOTE Subjective: Patient is a 54-year-old female presented from her primary care belen patterson's office for atrial fibrillation with rapid ventricular response. Patient was started on amiodarone yesterday and still has elevated heart rates with ambulation. Patient has an elevated heart rate when she walks to the bathroom up into the 120s to 130s. Patient says her shortness of breath has mildly improved and states that other than some nasal congestion, she is feeling otherwise well. Review of systems: General: Patient denies fevers HEENT: Patient denies headaches Cardiovascular: Patient denies chest pain Respiratory: Patient reports improvement in her shortness of breath GI: Patient denies abdominal pain, nausea, vomiting, diarrhea : Patient denies increased frequency or pain with urination Extremities: Patient denies swelling or pain in extremities Neurological: Patient denies numbness or tingling in legs Physical exam: Vitals: See below General: Alert and oriented female patient who was sitting in the chair when I walked in the room. Patient did not appear to be in any acute distress. HEENT: Normocephalic, atraumatic, moist mucous membranes. Neck: No lymphadenopathy or thyromegaly Cardiac: Irregularly irregular rhythm with a nontachycardic rate, no murmurs, normal S1, normal S2 Pulm: Clear to auscultation bilaterally. No wheezes, rhonchi, rales Abd: Nondistended, nontender to palpation, normal bowel sounds Ext: No edema bilateral lower extremities Labs: See below Imaging: No new imaging has been performed Assessment/plan: 54-year-old female presented to the emergency department with atrial fibrillation status post ablation with rapid ventricular rate who continues to be tachycardic with minimal exertion despite treatment with metoprolol and am iodarone 1. Atrial fibrillation with rapid ventricular rate. Patient had an ablation in [address] Burt. Patient's rapid ventricular rate is new. Patient is on 50 mg of metoprolol every 6 hours which has been changed 200 mg twice daily. Patient finished the 3 steps of amiodarone loading and will now be on 200 mg p.o. twice daily. I did speak with Dr. Mckeon this morning who agrees with this plan and will continue to monitor the patient overnight. 2. Asthma. Does not appear to be in exacerbation. Continue nebulizers as needed. 3. Hypertension. Continue lisinopril and Lasix. 4. Hyperlipidemia. Continue atorvastatin. 5. Depression/anxiety. Continue patient's home Effexor. DVT Prophylaxis: Full anticoagulation with Eliquis Disposition: Pending improvement in the patient's rate with minimal activity. VS,Fishbone, I+O VS, Fishbone, I+O Laboratory Tests 09/24/20 05:12 Vital Signs Date Time Temp Pulse Resp B/P (MAP) Pulse Ox O2 Delivery O2 Flow Rate FiO2 09/24/20 16:00 97.4 87 17 130/82 (98) 97 Room Air I&O- Last 24 Hours up to 6 AM 09/24/20 06:00 Intake Total 2836 ml Output Total 4100 ml Balance -1264 ml TOMMY MENJIVAR DO Sep 24, 2020 18:54
[2020-09-24 20:00] VITALS: BP 138/82
[2020-09-24] MEDS: ATORVASTATIN 20 MG TAB PO SCH (20:05)
[2020-09-24] MEDS: MONTELUKAST 10 MG TAB PO SCH (20:06)
[2020-09-24] MEDS: AMIODARONE 200 MG TAB (PACERONE) PO SCH (20:06)
[2020-09-24] MEDS: METOPROLOL TARTRATE 100 MG TAB PO SCH (20:06)
[2020-09-25] VITALS (7 sets, daily range): BP systolic 107–132; BP diastolic 60–84
[2020-09-25] MEDS: SODIUM CHLORIDE NASAL 0.65% SPRAY BTL (OCEAN) PRN ×2 (06:11→20:30)
[2020-09-25 06:14] LABS: HEMOGLOBIN 13.5 g/dl (12.0-15.5); MEAN CORPUSCULAR HGB CONC 32.1 g/dl (32.0-36.5); MEAN CORPUSCULAR VOLUME 96.6 fl (80.0-96.0); PLATELET COUNT, AUTOMATED 252 10^3/uL (150-450); RED BLOOD COUNT 4.35 10^6/uL (4.00-5.40); WHITE BLOOD COUNT 9.3 10^3/uL (4.0-10.0)
[2020-09-25 06:29] LABS: BLOOD UREA NITROGEN 15 MG/DL (7-18); CALCIUM LEVEL 8.6 MG/DL (8.5-10.1); CARBON DIOXIDE LEVEL 27 MEQ/L (21-32); CHLORIDE LEVEL 106 MEQ/L (98-107); CREATININE FOR GFR 0.83 MG/DL (0.55-1.30); GLOMERULAR FILTRATION RATE > 60.0 (>51); GLUCOSE, FASTING 115 MG/DL (70-100); MAGNESIUM LEVEL 2.2 MG/DL (1.8-2.4); POTASSIUM SERUM 4.5 MEQ/L (3.5-5.1); SODIUM LEVEL 139 MEQ/L (136-145)
[2020-09-25] MEDS: METOPROLOL TARTRATE 100 MG TAB PO SCH ×3 (07:55→17:48)
[2020-09-25] MEDS: VENLAFAXINE **XR** 75MG CAPSULE PO SCH (07:56)
[2020-09-25] MEDS: AMIODARONE 200 MG TAB (PACERONE) PO SCH ×2 (07:56→20:30)
[2020-09-25] MEDS: APIXABAN 5 MG TAB (ELIQUIS) PO SCH ×2 (07:56→20:30)
--- NOTE | 2020-09-25 08:35 | IPNPDOC ---
Text Note Date of Service The patient was seen on 09/25/20. NOTE Subjective: Patient was admitted on 09/20/20 for Atrial fibrillation with RVR. Patient has had this in the past and had received ablation for Afib in 2016. Today when the patient was seen she was sitting at a chair on the side of her bed where she was using her tablet. Pt had no complaints or changes in her physical presentation - no complaints of chest pain and no complaints of shortness of breath. When patient was seen her HR was 130s-150s. Review of system: Pt denies headache, fever, SOB, palpitations, Abdominal pain, or chest pain. Physical exam: Vitals: Patient was tachycardic when seen. Rest of vitals were within normal limits - See below. General: Pt does not have a fever and is not in distress. Psych: Alert and oriented *3. HEENT: No headache, nuchal rigidity, or pain and stiffness in the head or neck area. Neck: No visible thyromegaly or lymph nodes. Cardiac: ON ECG multiple p waves per QRS complex tachycardic rate, no murmurs on auscultation, normal S1, normal S2, no extra heart sounds. Telemetry also showed tachycardiac events at 4:45, 7:15, 7:25, 7:40, each of these events corresponds to the patient getting up and moving. Pulm: Clear to auscultation bilaterally. Abd: No abdominal complaints Ext: No edema on visual inspection of her legs and arms. Tests and imaging: No new imaging study have been ordered. Labs are shown below. Assessment/plan: 54-year-old female patient who has a past medical history of Afib, Asthma, Hypertension, Hyperlipidemia, and Depression/ anxiety. Patient was admitted for atrial fibrillation with RVR on 09/19/20 and is still experiencing tachycardia and Afib despite treatment with metoprolol and amiodarone. 1. Atrial fibrillation with rapid ventricular rate. Patient had an ablation in [address] Burt. Patient is on 100 mg metoprolol two times a day. Will increase to q6h today. Patient is on 200 mg Amiodarone two times a day. Patient had not received first dose of either metoprolol or amiodarone for the day when she was examined. The plan for now is to see how she responds to the dose increase at rest and during ambulation and ideally have the patient be under 110bpm for both. 2. Asthma, stable. Patient had no complaints of SOB on exam. Lung sounds were clear and equal on both sides. 3. Hypertension. Continue lisinopril and Lasix. 4. Hyperlipidemia. Continue atorvastatin. 5. Depression/anxiety. Continue patient's home Effexor. DVT Prophylaxis: Full anticoagulation with Eliquis Disposition: Pending improvement in the patient's HR. Possible d/c in the next 24-48 hrs VS,Fishbone, I+O VS, Fishbone, I+O Laboratory Tests 09/25/20 05:45 Vital Signs Date Time Temp Pulse Resp B/P (MAP) Pulse Ox O2 Delivery O2 Flow Rate FiO2 09/25/20 07:55 120 131/83 09/25/20 04:00 97.1 18 97 Room Air l I&O- Last 24 Hours up to 6 AM 09/25/20 06:00 Intake Total 2054 ml Output Total 4000 ml Balance -1946 ml GME ATTESTATION GME ATTESTATION My faculty preceptor for this patient encounter was physically present during the encounter and was fully available. All aspects of the patient interview, examination, medical decision making process, and medical care plan development were reviewed and approved by the faculty preceptor. The faculty preceptor is aware and concurs with the plan as stated in the body of this note and will a ttest to such by his/her cosignature. ATTENDING NOTE I, Coreen Luna, have independently examined this patient and performed my own physical exam, as well as reviewed the documentation and edited where necessary. I have discussed in detail with the resident / student the findings and plan of treatment as documented by the resident / student and edited their note. I agree with their findings and treatment plan and have edited their documentation. I will continue to follow the patient during this hospital stay. NIK PETERSON OMS-3 Sep 25, 2020 08:35 ANGELINA NAVARRO D.O. Sep 25, 2020 13:45 COREEN LUNA MD Sep 25, 2020 16:54
--- NOTE | 2020-09-25 12:48 | ECHO ---
ECHOCARDIOGRAM DATE OF PROCEDURE: 09/24/2020 REFERRING PHYSICIAN: Dr. Con Menchaca PATIENT LOCATION: Room 3329 REASON FOR THE TESTING: Abnormal EKG 2D MEASUREMENTS: IVS 1.2 cm LV 4.9 cm LVPW 1.1 cm LA 4.6 cm Aorta 2.3 IVC 2.4 cm DOPPLER MEASUREMENT Peak velocity across the aortic valve 0.9 Peak velocity across the LVOT 0.74 m/s Mitral E 1.1 Maximum tricuspid valve velocity 2.8 m/s 2D COMMENTS: 1. Normal left ventricular size and wall thickness but left ventricular systolic function appeared to be depressed, estimated at 40 to 45%. There was global hypokinesis. 2. Mildly dilated left atrium and right atrium. Normal right ventricle. 3. The atrial septum appeared to be normal without evidence of defect or shunt. 4. Normal aortic root. 5. A small pericardial effusion was noted, no evidence of cardiac tamponade. 6. Mildly calcified mitral annulus with normal anterior mitral valve leaflet motion. Mild mitral regurgitation. Normal aortic valve. Normal tricuspid valve. The pulmonic valve and proximal pulmonary artery branches were not well visualized. 7. The inferior vena cava is dilated, central venous pressure is probably elevated. IMPRESSION: 1. Mild to moderate global left ventricular systolic dysfunction with global hypokinesis. The ventricle is normal in size. 2. Mitral valve calcification with a mildly enlarged left atrium and mild regurgitation. 3. Moderate tricuspid regurgitation with mild pulmonary hypertension and mildly enlarged right atrium. 4. A small pericardial effusion was noted, no evidence of cardiac tamponade. 5. There are findings consistent with elevated central venous pressure, the inferior vena cava was mildly enlarged.
[2020-09-25] MEDS: ATORVASTATIN 20 MG TAB PO SCH (20:30)
[2020-09-25] MEDS: MONTELUKAST 10 MG TAB PO SCH (20:30)
[2020-09-26] VITALS: BP 106/61
[2020-09-26 04:00] VITALS: BP 126/84
[2020-09-26] MEDS: METOPROLOL TARTRATE 100 MG TAB PO SCH ×3 (05:15→12:57)
[2020-09-26 06:04] LABS: HEMATOCRIT 39.8 % (36.0-47.0); HEMOGLOBIN 12.9 g/dl (12.0-15.5); MEAN CORPUSCULAR HEMOGLOBIN 31.2 pg (27.0-33.0); MEAN CORPUSCULAR HGB CONC 32.4 g/dl (32.0-36.5); MEAN CORPUSCULAR VOLUME 96.4 fl (80.0-96.0); PLATELET COUNT, AUTOMATED 242 10^3/uL (150-450); RED BLOOD COUNT 4.13 10^6/uL (4.00-5.40); WHITE BLOOD COUNT 9.3 10^3/uL (4.0-10.0)
[2020-09-26 06:31] LABS: BLOOD UREA NITROGEN 13 MG/DL (7-18); CALCIUM LEVEL 8.8 MG/DL (8.5-10.1); CARBON DIOXIDE LEVEL 28 MEQ/L (21-32); CHLORIDE LEVEL 107 MEQ/L (98-107); CREATININE FOR GFR 0.81 MG/DL (0.55-1.30); GLOMERULAR FILTRATION RATE > 60.0 (>51); GLUCOSE, FASTING 122 MG/DL (70-100); MAGNESIUM LEVEL 2.1 MG/DL (1.8-2.4); POTASSIUM SERUM 4.9 MEQ/L (3.5-5.1); SODIUM LEVEL 139 MEQ/L (136-145)
[2020-09-26 07:49] VITALS: BP 110/83
--- NOTE | 2020-09-26 08:10 | IPNPDOC ---
Text Note Date of Service The patient was seen on 09/26/20. Subjective: Patient was admitted on 09/19/20 for Afib with RVR. Patient had an ablation for Afib in 2016. When patient was seen she was at the side of her bed using her tablet. Patient said that she still felt good and had no physical complaints. HR was in the 80s when seen. Patient says that she was not given her metoprolol at midnight because her systolic BP was less than 110, but was given her metoprolol at 5am. Review of systems: Patient denies headache, palpitations, chest pain, SOB, ABD pain, pain with urination, says urine and stool have no blood or discoloration, and denies numbness and tingling. Physical exam: General: Patient has no fever Psych: Patient is Alert and oriented *3 Head: No nuchal rigidity Neck: No visible thyromegaly or lymphadenopathy Heart: Heart sounds are tachycardic and irregular. ECG shows active Afib. According to telometry data she had Tachycardic episodes at 5:35, 18:20, 16:10, 15:35, 14:30, 14:00, and many episodes from 9:00-10:00. Lung: Patient has clear lung sounds in all lobes BL. Extremities: No edema or fluid accumulation in extremities on visual inspection. Neuro: Patient has normal strength and sensation in all extremities. Tests and imaging: No new imaging study have been ordered. Labs are shown below. Assessment/plan: 54-year-old female patient who has a past medical history of Afib, Asthma, Hypertension, Hyperlipidemia, and Depression/ anxiety. Patient was admitted for atrial fibrillation with RVR on 09/19/20 and is still experiencing tachycardia and Afib despite treatment with metoprolol and amiodarone. 1. Atrial fibrillation with rapid ventricular rate. Patient had an ablation in [address] Burt. Patient is on 100 mg every 6 hours. Patient is on 200 mg Amiodarone two times a day. Patient received a dose of metoprolol at 5:00 and was examined at 7:40. Patient was not given Midnight dose of metoprolol because Systolic BP was <110. The plan for now is to see how she responds to the dose increase at rest and during ambulation and ideally have the patient be under 110bpm for both. From the patient's nurse - Patient walked down the morfin and her HR nesha to 120bpm. 2. Asthma, stable. Patient had no complaints of SOB on exam. Lung sounds were clear and equal on both sides. 3. Hypertension. Continue lisinopril and Lasix. 4. Hyperlipidemia. Continue atorvastatin. 5. Depression/anxiety. Continue patient's home Effexor. DVT Prophylaxis: Full anticoagulation with Eliquis Disposition: Pending improvement in the patient's HR. Possible d/c in the next 24hrs. VS,Fishbone, I+O VS, Fishbone, I+O Laboratory Tests 09/26/20 05:46 Vital Signs Date Time Temp Pulse Resp B/P (MAP) Pulse Ox O2 Delivery O2 Flow Rate FiO2 09/26/20 07:49 97.5 57 18 110/83 (92) 96 Room Air I&O- Last 24 Hours up to 6 AM 09/26/20 06:00 Intake Total 2555 ml Output Total 3250 ml Balance -695 ml NIK PETERSON S-3 Sep 26, 2020 08:10
[2020-09-26] MEDS: VENLAFAXINE **XR** 75MG CAPSULE PO SCH (09:43)
[2020-09-26] MEDS: AMIODARONE 200 MG TAB (PACERONE) PO SCH (09:44)
[2020-09-26] MEDS: APIXABAN 5 MG TAB (ELIQUIS) PO SCH (09:44)
[2020-09-26] MEDS ORDERED: SLF 3 ML SYR IV PRN (10:45)
[2020-09-26 11:29] VITALS: BP 134/86
[2020-09-26 12:57] VITALS: BP 134/86
[2020-09-26] MEDS ORDERED: LOPR1TAB7 PO (13:21)
[2020-09-26] MEDS ORDERED: AMIO200T3 PO (13:21)
[2020-09-26] MEDS ORDERED: SLF 3 ML SYR IV SCH (14:00)
--- NOTE | 2020-09-26 16:58 | DS.PDOC ---
Discharge Summary General Date of Admission Sep 20, 2020 at 16:36 Date of Discharge 09/26/20 Attending Physician: COREEN MENESES MD Discharge Summary PROCEDURES PERFORMED DURING STAY: none ADMITTING DIAGNOSES: 1. Afib with RVR. 2. Asthma - stable 3. Hyperlipidemia 4. Hypertension 5. Depression/ anxiety DISCHARGE DIAGNOSES: 1. Afib 2. Asthma - stable 3. Hyperlipidemia 4. Hypertension 5. Depression/ anxiety COMPLICATIONS/CHIEF COMPLAINT: Atrial Fibrillation with RVR. HISTORY OF PRESENT ILLNESS: Patient was admitted on 09/20/20 for Afib with RVR. Patient had previously been treated for Afib with an ablation in 2016. She was seen by her PCP who saw on EKG that she was in atrial fibrillation with RvR in the office. The patient was sent to the ED. Presentation to the emergency room, the patient reported increasing shortness of breath and fatigue over the past few days. She had thought her asthma was acting up and was using her rescue inhaler more often. She also reported a nonproductive cough. She denied any chest pain, chest tightness, nausea, vomiting, diarrhea, constipation, dysuria, syncope, headaches, paresthesias, fevers or chills. Patient was then admitted to the ICU and treatment goal was to reduce her HR to below 110 at rest. HOSPITAL COURSE: Patient's was initially given 300 mg of IV amiodarone, 37.5 mg metoprolol and 50 mg of atenolol by hospitalist service for HR and Afib control. Patient is currently on 100mg metoprolol every 6 hours and Amiodarone twice a day. This has been able to keep her HR below 110 at rest and has had improvement of her ambulatory HR. Patient is currently without any physical complaints from her condition including denial of chest pain, palpitations, and SOB. Patient will be switched to Metoprolol 200mg twice a day, kept on amiodarone 100mg 2 times a day, and kept on eliquis twice a day. She has been instructed to follow up with her PCP and [employer] within 7 days. DISCHARGE MEDICATIONS: Please see below. ALLERGIES: Please see below. PHYSICAL EXAMINATION ON DISCHARGE: VITAL SIGNS: Please see below. General: Patient has no fever Psych: Patient is Alert and oriented *3 Head: No nuchal rigidity Neck: No visible thyromegaly or lymphadenopathy Heart: Heart sounds are tachycardic and irregular. ECG shows active Afib. According to telometry data she had Tachycardic episodes at 5:35, 18:20, 16:10, 15:35, 14:30, 14:00, and many episodes from 9:00-10:00. Lung: Patient has clear lung sounds in all lobes BL. Extremities: No edema or fluid accumulation in extremities on visual inspection. Neuro: Patient has normal strength and sensation in all extremities. LABORATORY DATA: Please see below. IMAGING: - Echocardiogram (per scientist impression) 1. Mild to moderate global left ventricular systolic dysfunction with global hypokinesis. The ventricle is normal in size. 2. Mitral valve calcification with a mildly enlarged left atrium and mild regurgitation. 3. Moderate tricuspid regurgitation with mild pulmonary hypertension and mildly enlarged right atrium. 4. A small pericardial effusion was noted, no evidence of cardiac tamponade. 5. There are findings consistent with elevated central venous pressure, the inferior vena cava was mildly enlarged. PROGNOSIS: Good ACTIVITY: As tolerated. DIET: Normal DISCHARGE PLAN: Patient will be sent home on 200mg metoprolol twice a day, amiodarone 100mg twice a day, and eliquis twice a day for management of Afib and maintenance of her HR. DISPOSITION: Home Health Service. DISCHARGE INSTRUCTIONS: 1. Take Metoprolol 200mg twice a day. 2. Take amiodarone 100mg twice a day. 3. Take Eliquis twice a day. ITEMS TO FOLLOWUP ON ON OUTPATIENT: 1. Follow up with cardiology within 7 days. DISCHARGE CONDITION: Stable. TIME SPENT ON DISCHARGE: 45 minutes. Vital Signs/I&Os Vital Signs Date Time Temp Pulse Resp B/P (MAP) Pulse Ox O2 Delivery O2 Flow Rate FiO2 09/26/20 12:57 78 134/86 09/26/20 11:29 99.1 18 96 Room Air I&O- Last 24 Hours up to 6 AM 09/26/20 06:00 Intake Total 2555 ml Output Total 3250 ml Balance -695 ml Laboratory Data Labs 24H Laboratory Tests 2 09/26/20 05:46: Nucleated Red Blood Cells % (auto) 0.0, Anion Gap 4L, Glomerular Filtration Rate > 60.0, Calcium Level 8.8, Magnesium Level 2.1 CBC/BMP Laboratory Tests 09/26/20 05:46 Discharge Medications Scheduled Amiodarone HCl (Amiodarone HCl) 200 Mg Tablet, 200 MG PO BID Apixaban (Eliquis) 5 Mg Tab, 5 MG PO BID, (Reported) Atorvastatin Calcium (Atorvastatin Calcium) 80 Mg Tab, 80 MG PO QHS, (Reported) Calcium Carbonate/Vitamin D3 (Calcium 500-Vit D3 200 Tablet) 1 Each Tablet, 1 TAB PO DAILY, (Reported) Cholecalciferol (Vitamin D3) (Vitamin D3) 1,000 Unit Tablet, 1,000 UNITS PO DAILY, (Reported) Metoprolol Tartrate (Lopressor) 100 Mg Tablet, 200 MG PO BID Montelukast Sodium (Montelukast Sodium) 10 Mg Tablet, 10 MG PO QHS, (Reported) Venlafaxine HCl (Venlafaxine HCl ER) 75 Mg Cap.er.24h, 75 MG PO DAILY, (Reported) Vitamin B Complex (Vitamin B Complex) 1 Each Tablet, 1 TAB PO DAILY, (Reported) Scheduled PRN Albuterol Sulfate (Proair Hfa) 8.5 Gm Hfa.aer.ad, 2 PUFF INH Q4H PRN for SHORTNESS OF BREATH, (Reported) Allergies Coded Allergies: Penicillins (Verified Allergy, Mild, HIVES, 04/05/20) GME ATTESTATION GME ATTESTATION My faculty preceptor for this patient encounter was physically present during the encounter and was fully available. All aspects of the patient interview, examination, medical decision making process, and medical care plan development were reviewed and approved by the faculty preceptor. The faculty preceptor is aware and concurs with the plan as stated in the body of this note and will attest to such by his/her cosignature. ATTENDING NOTE I, Coreen Meneses, have independently examined this patient and performed my own physical exam, as well as reviewed the documentation and edited where necessary. I have discussed in detail with the resident / student the findings and plan of treatment as documented by the resident / student and edited their note. I agree with their findings and treatment plan and have edited their documentation. I will continue to follow the patient during this hospital stay. Time spent on discharge 35 minutes NIK PETERSON OMS-3 Sep 26, 2020 16:57 COREEN MENESES MD Sep 26, 2020 18:18 ANGELINA NAVARRO D.O. Sep 26, 2020 18:58
== END 2020-09-26 16:49 | disposition home health service (06) | DRG 201 ==
LOC: M ED 16:35 → M ED INP 16:36 → ENRESERV 23:14 → M PCU 23:35
PROVIDERS: ADMIT General Practice; ATTEND Internal Medicine
DX: I48.91 Unspecified atrial fibrillation (principal); I27.20 Pulmonary hypertension, unspecified; I08.1 Rheumatic disorders of both mitral and tricuspid valves; J45.909 Unspecified asthma, uncomplicated; E78.5 Hyperlipidemia, unspecified; I10 Essential (primary) hypertension; F41.9 Anxiety disorder, unspecified; F32.9 Major depressive disorder, single episode, unspecified; Z79.899 Other long term (current) drug therapy; Z88.0 Allergy status to penicillin; Z86.73 Personal history of transient ischemic attack (TIA), and cerebral infarction without residual deficits; G47.33 Obstructive sleep apnea (adult) (pediatric)

== ENCOUNTER → 2020-10-10 | Outpatient (CLI) | payer BC ==
[~2020-10-10] MED LIST changes: +CALC250T PO; +D31000TA2 PO; +FLON1SPR NARES; +LOPR1TAB7 PO; +MONT10TA10; +OYST500T92 PO; +PROAAER10 INH; +VENL75CA47 PO; +VITATAB73 PO
== END ==
LOC: M LABSMTC 13:21
PROVIDERS: ATTEND Anesthesiology
DX: Z01.818 Encounter for other preprocedural examination (principal); Z11.52 Encounter for screening for COVID-19

== ENCOUNTER 2020-10-12 06:13 | Day surgery (SDC) | payer BC ==
[~2020-10-12] VITALS: Ht 162.6 cm; Wt 136.5 kg
[~2020-10-12 06:13] MED LIST changes: +LR 1,000 ML IV ONE
[2020-10-12] MEDS ORDERED: LIDOCAINE 2% 100MG/5ML SDV (FOR ANES.) As Ordered ONE (07:01)
[2020-10-12] MEDS ORDERED: propofoL 200 MG/20 ML VIAL As Ordered ONE (07:01)
[2020-10-12] MEDS ORDERED: ePHEDrine SULFATE 25 MG/5 ML(5MG/ML) SYRINGE As Ordered ONE (07:38)
[2020-10-12] MEDS ORDERED: CALCIUM CHLORIDE 10% 1 GM/10 ML SYR As Ordered ONE (07:38)
[2020-10-12] MEDS ORDERED: ONDANSETRON 4MG/2ML VIAL IV PRN (07:50)
[2020-10-12] MEDS ORDERED: LR 1,000 ML IV SCH (07:50)
--- NOTE | 2020-10-12 07:54 | RO ---
OPERATIVE NOTE DATE OF OPERATION: 10/12/2020 PREOPERATIVE DIAGNOSIS: Atrial fibrillation. POSTOPERATIVE DIAGNOSIS: Resumption of sinus rhythm. PROCEDURE: Cardioversion. SURGEON: Alix Burt M.D. TICKET AGENT: None. ANESTHESIA: Pool Yeager CRNA and Dean Padilla MD BRIEF HISTORY: Mrs. Palacios is a 54-year-old female who has history of atrial fibrillation. She already underwent prior cardioversion and ablation in 2017. Unfortunately she recently relapsed possibly as a consequence of upper respiratory infection. She was started on Amiodarone, high dose beta blockers for rate control and was brought for elective cardioversion. The nature of the procedure, its potential risks and complications were discussed with the patient on outpatient basis by Ruth Antunez, nurse practitioner. I went over these issues prior to the procedure again. The patient signed appropriate consent. Procedure was performed in recovery room. DESCRIPTION OF PROCEDURE: Cardioversion was performed in recovery room. The patient presented in fasting condition. After appropriate time out was taken and all the monitors were applied, she was cardioverted with single 300 joules shock delivered in synchronized fashion. It led to jainism of sinus bradycardia. There were no immediate complications and the patient tolerated the procedure well. 12-lead EKG is pending at the time of my dictation. The patient will be discharged home after brief observation provided she meets discharge criteria. Because she is bradycardic will reduce the dose of Amiodarone to 200 mg daily and metoprolol from current 200 mg bid to 50 mg twice a day. Tentative follow up in our office next week. We will contact the patient in this regard. CAREN
[2020-10-12 08:50] VITALS: BP 135/81
--- NOTE | 2020-10-13 11:12 | ECGEPIP ---
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 Low voltages with slow precordial R wave progression and persistent S waves V5 a and V6; body habitus versus pulmonary disease. Subtle diffuse ST/T wave abnormalities are less marked with slower rate than 0 09/20/20 Electronically Signed on 10-13-2020 11:12:10 EDT by Eduardo Brizuela
--- NOTE | 2020-10-13 11:13 | ECGEPIP ---
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 : 1965 Requested By: Alix Burt Order Number: [id number] Reading MD: Eduardo Brizuela Measurements Intervals [place] Rate: 42 P: 68 RI: 196 QRS: 53 QRSD: 90 T: 38 QT: 446 QTc: 372 Interpretive Statements marked sinus bradycardia/sinus arrhythmia Low limb voltages; body habitus versus pulmonary disease Rhythm converted from atrial fibrillation earlier the same day. Subtle ST scooping rule out digoxin effect. Electronically Signed on 10-13-2020 11:13:21 EDT by Eduardo Brizuela
== END 2020-10-12 08:57 | disposition home or self-care (01) ==
LOC: M SDC 06:13
PROVIDERS: ATTEND Internal Medicine Cardiovascular Disease
DX: I48.0 Paroxysmal atrial fibrillation (principal); I10 Essential (primary) hypertension; E78.49 Other hyperlipidemia; Z86.73 Personal history of transient ischemic attack (TIA), and cerebral infarction without residual deficits; Z87.891 Personal history of nicotine dependence; F32.9 Major depressive disorder, single episode, unspecified; J44.9 Chronic obstructive pulmonary disease, unspecified; Z79.01 Long term (current) use of anticoagulants; E66.9 Obesity, unspecified

== ENCOUNTER → 2020-12-18 | Outpatient (REF) | payer BC ==
[~2020-12-18] MED LIST changes: -LR 1,000 ML IV ONE
[2020-12-18 13:15] LABS: CALCIUM LEVEL 9.1 MG/DL (8.5-10.1); CREATININE FOR GFR 1.17 MG/DL (0.55-1.30); GLOMERULAR FILTRATION RATE 50.8 (>51); POTASSIUM SERUM 5.1 MEQ/L (3.5-5.1)
== END ==
LOC: M SFHCADAM 10:14
PROVIDERS: ATTEND Physician Assistant
DX: I10 Essential (primary) hypertension (principal); I48.91 Unspecified atrial fibrillation; R06.00 Dyspnea, unspecified

== ENCOUNTER → 2020-12-18 | Outpatient (CLI) | payer BC ==
--- NOTE | 2020-12-18 15:42 | REP ---
INDICATION: JULIAN. COMPARISON: 09/20/2020 the latest prior a portable exam TECHNIQUE: PA and lateral FINDINGS: The cardiomediastinal silhouette is within normal limits. The lung irizarry are clear. The pleural angles are sharp. The osseous structures are stable and intact. IMPRESSION: There is no acute cardiopulmonary disease. <Electronically signed by Aleksandar Pineda > 12/18/20 [id number]
== END ==
LOC: M ADAMS 10:18
PROVIDERS: ATTEND Physician Assistant
DX: R06.00 Dyspnea, unspecified (principal)

== ENCOUNTER → 2021-02-19 | Outpatient (CLI) | payer BC ==
--- NOTE | 2021-02-19 10:31 | PFTRPT ---
Height: 66.00 Inches Weight: 310.00 Lbs BSA: 2.41 Diagnosis: R06.02 DATE: 02/19/2021 ORDERING PHYSICIAN: Latisha Hastings NP Pre and post bronchodilator studies have excellent technical quality. Forced vital capacity is reduced. FEV1 is in proportion. Obstructive index is therefore normal. Expiratory limit of the flow-volume loop does suggest some degree of flow rate limitation. Only borderline bronchodilator response is identified. Total lung capacity is normal. Residual volume suggests significant air trapping. Diffusing capacity is normal and remains normal when corrected for alveolar volume. Hemoglobin is acceptable at 12.7. Airway resistance and conductance are normal. IMPRESSION: Suspect underlying air trapping. Please correlate clinically. MTDD
== END ==
LOC: M CARPUL 09:51
PROVIDERS: ATTEND Nurse Practitioner Adult Health
DX: R06.02 Shortness of breath (principal)

== ENCOUNTER → 2021-03-26 | Outpatient (CLI) | payer BC ==
[~2021-03-26] MED LIST changes: -AMIO200T3 PO; +AMIO200T49 PO; +METHACHOLINE KIT (J7674) INH ONE; -MONT10TA10; -MONT10TA10 PO; +MONT10TA97; +MONT10TA97 PO
== END ==
LOC: M CARPUL 08:39
PROVIDERS: ATTEND Nurse Practitioner Adult Health
DX: Z53.9 Procedure and treatment not carried out, unspecified reason (principal)

== ENCOUNTER → 2021-04-02 | Outpatient (CLI) | payer BC ==
[~2021-04-02] MED LIST changes: -D31000TA2 PO; +VITA100093 PO
== END ==
LOC: M CARPUL 08:49
PROVIDERS: ATTEND Nurse Practitioner Adult Health
DX: R06.02 Shortness of breath (principal)
CPT/HCPCS: 94070; J7674

== ENCOUNTER → 2021-06-13 | Outpatient (REF) | payer BC ==
[~2021-06-13] MED LIST changes: +BUPR-71 PO; -BUPR150T5 PO; -METHACHOLINE KIT (J7674) INH ONE
[2021-06-13 14:36] LABS: HEMATOCRIT 38.7 % (36.0-47.0); HEMOGLOBIN 12.5 g/dl (12.0-15.5); MEAN CORPUSCULAR HEMOGLOBIN 32.3 pg (27.0-33.0); MEAN CORPUSCULAR HGB CONC 32.3 g/dl (32.0-36.5); PLATELET COUNT, AUTOMATED 258 10^3/uL (150-450); RED BLOOD COUNT 3.87 10^6/uL (4.00-5.40); WHITE BLOOD COUNT 9.1 10^3/uL (4.0-10.0)
[2021-06-13 14:54] LABS: HEMOGLOBIN A1c 5.7 %
[2021-06-13 15:12] LABS: ALBUMIN 3.3 GM/DL (3.2-5.2); ALT/SGPT 34 U/L (12-78); BLOOD UREA NITROGEN 17 MG/DL (7-18); CALCIUM LEVEL 8.9 MG/DL (8.5-10.1); CARBON DIOXIDE LEVEL 29 MEQ/L (21-32); CHLORIDE LEVEL 103 MEQ/L (98-107); CHOLESTEROL LEVEL 168 MG/DL (<200); CHOLESTEROL RISK RATIO 2.048 (<5); CREATININE FOR GFR 0.87 MG/DL (0.55-1.30); GLOMERULAR FILTRATION RATE > 60.0 (>51); GLUCOSE, FASTING 122 MG/DL (70-100); HDL CHOLESTEROL 82 MG/DL (>40); LDL CHOLESTEROL 66 MG/DL (<100); NON-HDL-C 86 MG/DL; POTASSIUM SERUM 4.5 MEQ/L (3.5-5.1); SODIUM LEVEL 137 MEQ/L (136-145); TOTAL PROTEIN 6.4 GM/DL (6.4-8.2); TRIGLYCERIDES LEVEL 100 MG/DL (<150)
== END ==
LOC: M SFHCADAM 08:51
PROVIDERS: ATTEND Physician Assistant
DX: I10 Essential (primary) hypertension (principal); I48.91 Unspecified atrial fibrillation; R06.00 Dyspnea, unspecified; R73.01 Impaired fasting glucose; E66.01 Morbid (severe) obesity due to excess calories; Z13.220 Encounter for screening for lipoid disorders

== ENCOUNTER → 2021-06-18 | Outpatient (CLI) | payer BC | LOC: M WHC 08:17 | PROVIDERS: ATTEND Physician Assistant | DX: Z53.9 Procedure and treatment not carried out, unspecified reason (principal) ==

== ENCOUNTER → 2021-08-15 | Outpatient (CLI) | payer BC | LOC: M RAD 11:12 | PROVIDERS: ATTEND Nurse Practitioner Adult Health | DX: Z12.2 Encounter for screening for malignant neoplasm of respiratory organs (principal); Z87.891 Personal history of nicotine dependence ==

== ENCOUNTER → 2021-12-13 | Outpatient (REF) | payer BC ==
[2021-12-13 13:13] LABS: HEMATOCRIT 39.5 % (36.0-47.0); HEMOGLOBIN 12.7 g/dl (12.0-15.5); MEAN CORPUSCULAR HEMOGLOBIN 32.3 pg (27.0-33.0); MEAN CORPUSCULAR HGB CONC 32.2 g/dl (32.0-36.5); MEAN CORPUSCULAR VOLUME 100.5 fl (80.0-96.0); PLATELET COUNT, AUTOMATED 294 10^3/uL (150-450); RED BLOOD COUNT 3.93 10^6/uL (4.00-5.40); WHITE BLOOD COUNT 8.9 10^3/uL (4.0-10.0)
[2021-12-13 14:05] LABS: ALBUMIN 3.7 GM/DL (3.2-5.2); ALT/SGPT 32 U/L (12-78); BILIRUBIN,TOTAL 0.5 MG/DL (0.2-1.0); BLOOD UREA NITROGEN 22 MG/DL (7-18); CALCIUM LEVEL 9.4 MG/DL (8.5-10.1); CARBON DIOXIDE LEVEL 28 MEQ/L (21-32); CHLORIDE LEVEL 102 MEQ/L (98-107); CREATININE FOR GFR 0.98 MG/DL (0.55-1.30); FREE T4 1.13 NG/DL (0.76-1.46); GLOMERULAR FILTRATION RATE > 60.0 (>51); GLUCOSE, FASTING 138 MG/DL (70-100); POTASSIUM SERUM 4.8 MEQ/L (3.5-5.1); SODIUM LEVEL 134 MEQ/L (136-145)
[2021-12-13 15:23] LABS: HEMOGLOBIN A1c 5.7 %
== END ==
LOC: M SFHCADAM 08:24
PROVIDERS: ATTEND Physician Assistant
DX: I10 Essential (primary) hypertension (principal); I48.91 Unspecified atrial fibrillation; R73.01 Impaired fasting glucose; E03.9 Hypothyroidism, unspecified; R30.0 Dysuria

== ENCOUNTER → 2022-01-06 | Outpatient (REF) | payer BC ==
[2022-01-06 14:42] LABS: APPEARANCE, URINE MANUAL HAZY (CLEAR); COLOR, URINE MANUAL YELLOW (YELLOW); SPECIFIC GRAVITY,URINE MANUAL 1.005 (1.002-1.035)
[2022-01-06 14:43] LABS: BILIRUBIN, URINE MANUAL NEGATIVE (NEGATIVE); BLOOD URINE MANUAL TRACE (NEGATIVE); GLUCOSE, URINE (UA) MANUAL NEGATIVE (NEGATIVE); KETONE, URINE MANUAL NEGATIVE (NEGATIVE); LEUKOCYTE ESTERASE, URINE MAN POSITIVE (NEGATIVE); NITRITE, URINE MANUAL NEGATIVE (NEGATIVE); PROTEIN, URINE MANUAL NEGATIVE (NEGATIVE); UROBILINOGEN, URINE MANUAL NORMAL (NORMAL)
[2022-01-06 15:02] LABS: SQUAMOUS EPITHELIAL CELL URINE SMALL AMOUNT /hpf (SMALL AMT); WBC, URINE 40-50 /hpf (0-3)
[2022-01-06 15:03] LABS: BACTERIA, URINE LARGE AMOUNT; HYALINE CAST, URINE NONE SEEN /lpf (0-1)
== END ==
LOC: M SFHCPLAZ 13:03
PROVIDERS: ATTEND Nurse Practitioner Family
DX: N39.0 Urinary tract infection, site not specified (principal)

== ENCOUNTER 2022-05-24 05:21 | Emergency (ER) | payer BC ==
[~2022-05-24] VITALS: Ht 167.6 cm; Wt 137.9 kg
[2022-05-24 10:26] VITALS: BP 123/63
== END 2022-05-24 10:32 | disposition home or self-care (01) ==
LOC: M ED 05:21
DX: S40.012A Contusion of left shoulder, initial encounter (principal); S00.83XA Contusion of other part of head, initial encounter; S16.1XXA Strain of muscle, fascia and tendon at neck level, initial encounter; I10 Essential (primary) hypertension; E78.5 Hyperlipidemia, unspecified; W06.XXXA Fall from bed, initial encounter; Y92.009 Unspecified place in unspecified non-institutional (private) residence as the place of occurrence of the external cause; Z88.0 Allergy status to penicillin; Z79.01 Long term (current) use of anticoagulants; Z79.52 Long term (current) use of systemic steroids; Z79.899 Other long term (current) drug therapy

== ENCOUNTER → 2022-06-11 | Outpatient (CLI) | payer BC | LOC: M WHC 07:49 | PROVIDERS: ATTEND Physician Assistant | DX: N63.10 Unspecified lump in the right breast, unspecified quadrant (principal) | CPT/HCPCS: 77066; G0279 ==

== ENCOUNTER → 2022-06-26 | Outpatient (REF) | payer BC ==
[2022-06-26 13:42] LABS: HEMATOCRIT 41.2 % (36.0-47.0); HEMOGLOBIN 13.2 g/dl (12.0-15.5); MEAN CORPUSCULAR HEMOGLOBIN 31.1 pg (27.0-33.0); MEAN CORPUSCULAR VOLUME 97.2 fl (80.0-96.0); PLATELET COUNT, AUTOMATED 256 10^3/uL (150-450); RED BLOOD COUNT 4.24 10^6/uL (4.00-5.40); WHITE BLOOD COUNT 8.8 10^3/uL (4.0-10.0)
[2022-06-26 13:54] LABS: HEMOGLOBIN A1c 5.7 % (4.0-6.0)
[2022-06-26 14:09] LABS: ALBUMIN 3.4 G/DL (3.2-5.2); ALKALINE PHOSPHATASE 114 U/L (46-116); ALT/SGPT 27 U/L (7.0-40); AST/SGOT 15 U/L (<34); BILIRUBIN,TOTAL 0.8 MG/DL (0.3-1.2); BLOOD UREA NITROGEN 20 MG/DL (9-23); CALCIUM LEVEL 8.7 MG/DL (8.5-10.1); CARBON DIOXIDE LEVEL 26 MMOL/L (20-31); CHLORIDE LEVEL 106 MMOL/L (98-107); CHOLESTEROL LEVEL 131 MG/DL (<200); CHOLESTEROL RISK RATIO 2.39 (<5); GLOMERULAR FILTRATION RATE > 60.0 (>51); GLUCOSE, FASTING 107 MG/DL (60-100); HDL CHOLESTEROL 54.6 MG/DL (>40); LDL CHOLESTEROL 59.4 MG/DL (<100); NON-HDL-C 76.4 MG/DL; POTASSIUM SERUM 4.9 MMOL/L (3.5-5.1); SODIUM LEVEL 139 MMOL/L (136-145); TOTAL PROTEIN 6.4 G/DL (5.7-8.2); TRIGLYCERIDES LEVEL 85 MG/DL (<150)
== END ==
LOC: M SFHCADAM 08:55
PROVIDERS: ATTEND Physician Assistant
DX: J45.20 Mild intermittent asthma, uncomplicated (principal); Z12.31 Encounter for screening mammogram for malignant neoplasm of breast; F33.2 Major depressive disorder, recurrent severe without psychotic features; I48.0 Paroxysmal atrial fibrillation; I10 Essential (primary) hypertension; E03.9 Hypothyroidism, unspecified; R73.01 Impaired fasting glucose

== ENCOUNTER → 2022-07-24 | Outpatient (REF) | payer BC | LOC: M LABDRWAD 12:59 | PROVIDERS: ATTEND Nurse Practitioner Family | DX: I48.91 Unspecified atrial fibrillation (principal); Z79.899 Other long term (current) drug therapy ==

== ENCOUNTER → 2022-08-11 | Outpatient (REF) | payer BC ==
[2022-08-11 18:15] LABS: CALCIUM LEVEL 9.1 MG/DL (8.5-10.1); CREATININE FOR GFR 1.06 MG/DL (0.55-1.30); GLOMERULAR FILTRATION RATE 56.7 (>51); POTASSIUM SERUM 5.2 MMOL/L (3.5-5.1)
== END ==
LOC: M LABDRWAD 15:58
PROVIDERS: ATTEND Nurse Practitioner
DX: I48.91 Unspecified atrial fibrillation (principal)

== ENCOUNTER → 2022-08-19 | Outpatient (REF) | payer BC ==
[2022-08-19 13:48] LABS: BASO # 0.1 10^3/uL (0.0-0.2); BASO % 0.7 % (0.0-1.0); EOS # 0.2 10^3/uL (0.0-0.5); EOS % 2.3 % (0.0-3.0); HEMATOCRIT 42.2 % (36.0-47.0); HEMOGLOBIN 13.5 g/dl (12.0-15.5); LYMPH # 1.6 10^3/uL (1.5-5.0); LYMPH % 17.3 % (24.0-44.0); MEAN CORPUSCULAR HEMOGLOBIN 31.2 pg (27.0-33.0); MEAN CORPUSCULAR VOLUME 97.5 fl (80.0-96.0); MONO # 0.7 10^3/uL (0.0-0.8); MONO % 7.2 % (2.0-8.0); NEUTROPHILS # 6.5 10^3/uL (1.5-8.5); NEUTROPHILS % 71.8 % (36.0-66.0); PLATELET COUNT, AUTOMATED 330 10^3/uL (150-450); RED BLOOD COUNT 4.33 10^6/uL (4.00-5.40); WHITE BLOOD COUNT 9.1 10^3/uL (4.0-10.0)
[2022-08-19 14:36] LABS: BLOOD UREA NITROGEN 16 MG/DL (9-23); CALCIUM LEVEL 9.5 MG/DL (8.5-10.1); CARBON DIOXIDE LEVEL 28 MMOL/L (20-31); CHLORIDE LEVEL 102 MMOL/L (98-107); CREATININE FOR GFR 0.95 MG/DL (0.55-1.30); GLOMERULAR FILTRATION RATE > 60.0 (>51); GLUCOSE, FASTING 107 MG/DL (60-100); POTASSIUM SERUM 5.2 MMOL/L (3.5-5.1); SODIUM LEVEL 137 MMOL/L (136-145); THYROID STIMULATING HORMONE 3.411 uIU/ML (0.55-4.78)
== END ==
LOC: M LABDRWAD 12:44
PROVIDERS: ATTEND Nurse Practitioner Family
DX: R06.02 Shortness of breath (principal); I48.91 Unspecified atrial fibrillation; I42.9 Cardiomyopathy, unspecified

== ENCOUNTER → 2022-11-04 | Outpatient (CLI) | payer BC | LOC: M RAD 16:13 | PROVIDERS: ATTEND Nurse Practitioner Adult Health | DX: Z12.2 Encounter for screening for malignant neoplasm of respiratory organs (principal); Z13.820 Encounter for screening for osteoporosis ==

== ENCOUNTER → 2022-11-04 | Outpatient (REF) | payer BC ==
[2022-11-04 13:10] LABS: HEMOGLOBIN 12.7 g/dl (12.0-15.5); MEAN CORPUSCULAR HEMOGLOBIN 31.8 pg (27.0-33.0); MEAN CORPUSCULAR HGB CONC 32.6 g/dl (32.0-36.5); MEAN CORPUSCULAR VOLUME 97.5 fl (80.0-96.0); PLATELET COUNT, AUTOMATED 323 10^3/uL (150-450); WHITE BLOOD COUNT 8.9 10^3/uL (4.0-10.0)
[2022-11-04 13:24] LABS: BLOOD UREA NITROGEN 23 MG/DL (9-23); CALCIUM LEVEL 9.4 MG/DL (8.5-10.1); CARBON DIOXIDE LEVEL 28 MMOL/L (20-31); CHLORIDE LEVEL 100 MMOL/L (98-107); CREATININE FOR GFR 0.92 MG/DL (0.55-1.30); GLOMERULAR FILTRATION RATE > 60.0 (>51); GLUCOSE, FASTING 106 MG/DL (60-100); POTASSIUM SERUM 4.8 MMOL/L (3.5-5.1); SODIUM LEVEL 137 MMOL/L (136-145)
== END ==
LOC: M LABDRWAD 12:19
PROVIDERS: ATTEND Internal Medicine Cardiovascular Disease
DX: Z01.812 Encounter for preprocedural laboratory examination (principal)

== ENCOUNTER → 2023-01-05 | Outpatient (REF) | payer BC | LOC: M SFHCADAM 16:00 | PROVIDERS: ATTEND Family Medicine | DX: Z53.9 Procedure and treatment not carried out, unspecified reason (principal) ==

== ENCOUNTER → 2023-03-11 | Outpatient (REF) | payer BC | LOC: M SFHCADAM 11:59 | PROVIDERS: ATTEND Physician Assistant | DX: J34.89 Other specified disorders of nose and nasal sinuses (principal); R05.9 Cough, unspecified ==

== ENCOUNTER → 2023-04-08 | Outpatient (CLI) | payer BC | LOC: M WHC 08:32 | PROVIDERS: ATTEND Physician Assistant | DX: Z12.31 Encounter for screening mammogram for malignant neoplasm of breast (principal); Z53.9 Procedure and treatment not carried out, unspecified reason ==

== ENCOUNTER → 2023-04-08 | Outpatient (REF) | payer BC ==
[2023-04-08 14:12] LABS: BASO # 0.1 10^3/uL (0.0-0.2); BASO % 0.8 % (0.0-1.0); EOS # 0.2 10^3/uL (0.0-0.5); EOS % 2.2 % (0.0-3.0); HEMATOCRIT 38.8 % (36.0-47.0); HEMOGLOBIN 12.4 g/dl (12.0-15.5); LYMPH # 1.6 10^3/uL (1.5-5.0); LYMPH % 18.5 % (24.0-44.0); MEAN CORPUSCULAR HEMOGLOBIN 31.6 pg (27.0-33.0); MEAN CORPUSCULAR VOLUME 98.7 fl (80.0-96.0); MONO # 0.9 10^3/uL (0.0-0.8); NEUTROPHILS # 5.9 10^3/uL (1.5-8.5); PLATELET COUNT, AUTOMATED 343 10^3/uL (150-450); RED BLOOD COUNT 3.93 10^6/uL (4.00-5.40); WHITE BLOOD COUNT 8.7 10^3/uL (4.0-10.0)
[2023-04-08 14:42] LABS: ALBUMIN 3.5 G/DL (3.2-5.2); ALKALINE PHOSPHATASE 132 U/L (46-116); ALT/SGPT 25 U/L (7.0-40); AST/SGOT 19 U/L (<34); BILIRUBIN,TOTAL 0.6 MG/DL (0.3-1.2); BLOOD UREA NITROGEN 23 MG/DL (9-23); CALCIUM LEVEL 9.4 MG/DL (8.5-10.1); CARBON DIOXIDE LEVEL 29 MMOL/L (20-31); CHLORIDE LEVEL 102 MMOL/L (98-107); CREATININE FOR GFR 0.93 MG/DL (0.55-1.30); GLOMERULAR FILTRATION RATE > 60.0 (>51); GLUCOSE, FASTING 128 MG/DL (60-100); POTASSIUM SERUM 4.7 MMOL/L (3.5-5.1); SODIUM LEVEL 134 MMOL/L (136-145); TOTAL PROTEIN 6.9 G/DL (5.7-8.2)
[2023-04-08 14:43] LABS: FREE T4 1.29 NG/DL (0.89-1.76); THYROID STIMULATING HORMONE 6.145 uIU/ML (0.55-4.78)
== END ==
LOC: M SFHCADAM 13:17
PROVIDERS: ATTEND Physician Assistant
DX: I10 Essential (primary) hypertension (principal); R73.01 Impaired fasting glucose; E03.9 Hypothyroidism, unspecified

== ENCOUNTER 2023-05-09 03:11 | Emergency (ER) | payer BC ==
[~2023-05-09] VITALS: Ht 167.6 cm; Wt 146.7 kg
[2023-05-09] MEDS ORDERED: FURO40TA2 PO (03:27)
[2023-05-09] MEDS ORDERED: ARNU1INH3 INH (03:27)
[2023-05-09 04:32] LABS: AMPHETAMINES LEVEL URINE NEGATIVE (NEGATIVE); BARBITURATES URINE NEGATIVE (NEGATIVE); BENZODIAZEPINES URINE NEGATIVE (NEGATIVE); COCAINE METABOLITE URINE NEGATIVE (NEGATIVE)
[2023-05-09 04:33] LABS: CANNABINOIDS URINE NEGATIVE (NEGATIVE); METHADONE URINE NEGATIVE (NEGATIVE); OPIATES URINE NEGATIVE (NEGATIVE); PHENCYCLIDINE URINE NEGATIVE (NEGATIVE)
[2023-05-09 04:41] LABS: HEMATOCRIT 38.6 % (36.0-47.0); MEAN CORPUSCULAR HEMOGLOBIN 31.9 pg (27.0-33.0); MEAN CORPUSCULAR HGB CONC 33.7 g/dl (32.0-36.5); MEAN CORPUSCULAR VOLUME 94.8 fl (80.0-96.0); PLATELET COUNT, AUTOMATED 317 10^3/uL (150-450); RED BLOOD COUNT 4.07 10^6/uL (4.00-5.40); WHITE BLOOD COUNT 9.7 10^3/uL (4.0-10.0)
[2023-05-09 04:54] LABS: ETHYL ALCOHOL (ETHANOL) 0.113 % (0.000-0.010)
[2023-05-09 04:55] LABS: SALICYLATE LEVEL < 3.0 MG/DL (<30)
[2023-05-09 04:56] LABS: ALBUMIN 3.4 G/DL (3.2-5.2); ALKALINE PHOSPHATASE 117 U/L (46-116); ALT/SGPT 33 U/L (7.0-40); AST/SGOT 19 U/L (<34); BILIRUBIN,DIRECT 0.2 MG/DL (<0.4); BILIRUBIN,TOTAL 0.5 MG/DL (0.3-1.2); BLOOD UREA NITROGEN 25 MG/DL (9-23); CALCIUM LEVEL 9.1 MG/DL (8.5-10.1); CARBON DIOXIDE LEVEL 21 MMOL/L (20-31); CHLORIDE LEVEL 103 MMOL/L (98-107); CREATININE FOR GFR 1.06 MG/DL (0.55-1.30); GLOMERULAR FILTRATION RATE 56.5 (>51); GLUCOSE, FASTING 149 MG/DL (60-100); POTASSIUM SERUM 3.7 MMOL/L (3.5-5.1); SODIUM LEVEL 138 MMOL/L (136-145); TOTAL PROTEIN 6.6 G/DL (5.7-8.2)
[2023-05-09 04:58] LABS: THYROID STIMULATING HORMONE 3.001 uIU/ML (0.55-4.78)
[2023-05-09] MEDS ORDERED: VENL150C43 PO (09:38)
[2023-05-09] MEDS ORDERED: METO1TAB33 PO (09:38)
[2023-05-09] MEDS ORDERED: VENTAER INH (09:38)
[2023-05-09] MEDS ORDERED: AMIO200T49 PO (09:38)
[2023-05-09] MEDS ORDERED: CALCD50TA PO (09:38)
[2023-05-09] MEDS ORDERED: HOME MED LIST COMPLETE! XX SCH (09:40)
[2023-05-09 12:11] VITALS: BP 146/72; TEMP 98.2; O2SAT 98
== END 2023-05-09 12:14 | disposition home or self-care (01) ==
LOC: M ED 03:11
DX: F10.129 Alcohol abuse with intoxication, unspecified (principal); F32.A Depression, unspecified; R45.851 Suicidal ideations; E78.5 Hyperlipidemia, unspecified; J44.9 Chronic obstructive pulmonary disease, unspecified; Z88.0 Allergy status to penicillin; Z86.79 Personal history of other diseases of the circulatory system; Z79.52 Long term (current) use of systemic steroids; Z79.01 Long term (current) use of anticoagulants; Z79.811 Long term (current) use of aromatase inhibitors; Z79.02 Long term (current) use of antithrombotics/antiplatelets; Z79.899 Other long term (current) drug therapy

== ENCOUNTER → 2023-11-23 | Outpatient (CLI) | payer BC ==
[~2023-11-23] MED LIST changes: +ARNU1INH3 INH; +CALCD50TA PO; +FURO40TA2 PO; +METO1TAB33 PO; +VENL150C43 PO; +VENTAER INH
[2023-11-23 17:12] LABS: HEMATOCRIT 41.4 % (36.0-47.0); HEMOGLOBIN 13.5 g/dl (12.0-15.5); MEAN CORPUSCULAR HEMOGLOBIN 31.9 pg (27.0-33.0); MEAN CORPUSCULAR HGB CONC 32.6 g/dl (32.0-36.5); MEAN CORPUSCULAR VOLUME 97.9 fl (80.0-96.0); PLATELET COUNT, AUTOMATED 338 10^3/uL (150-450); RED BLOOD COUNT 4.23 10^6/uL (4.00-5.40); WHITE BLOOD COUNT 7.8 10^3/uL (4.0-10.0)
[2023-11-23 17:32] LABS: CALCIUM LEVEL 9.3 MG/DL (8.5-10.1); CREATININE FOR GFR 1.38 MG/DL (0.55-1.30); GLOMERULAR FILTRATION RATE 41.7 (>51); POTASSIUM SERUM 4.1 MMOL/L (3.5-5.1)
== END ==
LOC: M WUC 14:04
PROVIDERS: ATTEND Internal Medicine Cardiovascular Disease
DX: I48.91 Unspecified atrial fibrillation (principal)

== ENCOUNTER → 2023-11-29 | Outpatient (REF) | payer BC | LOC: M LAB REF 19:52 | PROVIDERS: ATTEND Physician Assistant | DX: L03.116 Cellulitis of left lower limb (principal) ==

== ENCOUNTER → 2024-01-04 | Outpatient (CLI) | payer BC ==
[2024-01-04 12:16] LABS: HEMATOCRIT 38.5 % (36.0-47.0); HEMOGLOBIN 12.6 g/dl (12.0-15.5); MEAN CORPUSCULAR HEMOGLOBIN 32.1 pg (27.0-33.0); MEAN CORPUSCULAR HGB CONC 32.7 g/dl (32.0-36.5); MEAN CORPUSCULAR VOLUME 98.2 fl (80.0-96.0); PLATELET COUNT, AUTOMATED 326 10^3/uL (150-450); RED BLOOD COUNT 3.92 10^6/uL (4.00-5.40); WHITE BLOOD COUNT 8.2 10^3/uL (4.0-10.0)
[2024-01-04 12:38] LABS: HEMOGLOBIN A1c 5.6 % (4.0-6.0)
[2024-01-04 12:42] LABS: ALBUMIN 3.5 G/DL (3.2-5.2); ALKALINE PHOSPHATASE 137 U/L (35-104); ALT/SGPT 23 U/L (7.0-40); AST/SGOT 15 U/L (<34); BILIRUBIN,TOTAL 0.9 MG/DL (0.3-1.2); BLOOD UREA NITROGEN 16 MG/DL (9-23); CALCIUM LEVEL 9.9 MG/DL (8.3-10.6); CARBON DIOXIDE LEVEL 30 MMOL/L (20-31); CHLORIDE LEVEL 101 MMOL/L (98-107); CHOLESTEROL LEVEL 168 MG/DL (<200); CHOLESTEROL RISK RATIO 2.38 (<5); CREATININE FOR GFR 0.97 MG/DL (0.55-1.30); GLOMERULAR FILTRATION RATE > 60.0 (>45); GLUCOSE, FASTING 116 MG/DL (74-106); HDL CHOLESTEROL 70.5 MG/DL (>40); LDL CHOLESTEROL 70.9 MG/DL (<100); NON-HDL-C 97.5 MG/DL; POTASSIUM SERUM 4.3 MMOL/L (3.5-5.1); SODIUM LEVEL 140 MMOL/L (136-145); TOTAL PROTEIN 6.9 G/DL (5.7-8.2); TRIGLYCERIDES LEVEL 133 MG/DL (<150)
== END ==
LOC: M WUC 09:20
PROVIDERS: ATTEND Physician Assistant
DX: I10 Essential (primary) hypertension (principal); R73.01 Impaired fasting glucose; I48.91 Unspecified atrial fibrillation; Z86.73 Personal history of transient ischemic attack (TIA), and cerebral infarction without residual deficits

== ENCOUNTER → 2024-06-08 | Outpatient (CLI) | payer BC | LOC: M PLAIMG 07:31 | PROVIDERS: ATTEND Nurse Practitioner Adult Health | DX: R91.8 Other nonspecific abnormal finding of lung field (principal) ==

== ENCOUNTER → 2024-06-23 | Outpatient (CLI) | payer BC | LOC: M PLAIMG 09:04 | PROVIDERS: ATTEND Nurse Practitioner Adult Health | DX: R22.32 Localized swelling, mass and lump, left upper limb (principal) ==

== ENCOUNTER → 2024-09-14 | Outpatient (CLI) | payer BC ==
[~2024-09-14] MED LIST changes: -AMIO200T49 PO; +AMIO200T54 PO
[2024-09-14 14:11] LABS: PLATELET COUNT, AUTOMATED 284 10^3/uL (150-450)
[2024-09-14 14:17] LABS: ALT/SGPT 28.0 U/L (7.0-40); AST/SGOT 27.0 U/L (<34); CALCIUM LEVEL 9.4 MG/DL (8.3-10.6); CARBON DIOXIDE LEVEL 26.0 MMOL/L (20-31); CHLORIDE LEVEL 104.0 MMOL/L (98-107); CREATININE FOR GFR 0.91 MG/DL (0.55-1.30); GLOMERULAR FILTRATION RATE 72.2 (>45); POTASSIUM SERUM 4.4 MMOL/L (3.5-5.1); SODIUM LEVEL 141.0 MMOL/L (136-145)
== END ==
LOC: M WUC 09:13
PROVIDERS: ATTEND Physician Assistant
DX: I10 Essential (primary) hypertension (principal); I48.91 Unspecified atrial fibrillation

== ENCOUNTER → 2024-09-14 | Outpatient (CLI) | payer BC ==
[2024-09-14 14:16] LABS: CALCIUM LEVEL 9.3 MG/DL (8.3-10.6); CARBON DIOXIDE LEVEL 25.0 MMOL/L (20-31); CHLORIDE LEVEL 105.0 MMOL/L (98-107); CREATININE FOR GFR 0.9 MG/DL (0.55-1.30); GLOMERULAR FILTRATION RATE 73.2 (>45); MAGNESIUM LEVEL 1.9 MG/DL (1.8-2.4); POTASSIUM SERUM 4.4 MMOL/L (3.5-5.1); SODIUM LEVEL 141.0 MMOL/L (136-145)
== END ==
LOC: M WUC 09:11
PROVIDERS: ATTEND Internal Medicine Cardiovascular Disease
DX: Z01.812 Encounter for preprocedural laboratory examination (principal)

== ENCOUNTER 2024-09-15 13:32 | Emergency (ER) | payer BC ==
[2024-09-15 18:41] VITALS: BP 150/80; TEMP 97.4; O2SAT 99
== END 2024-09-15 18:43 | disposition home or self-care (01) ==
LOC: M ED 13:32
DX: S09.90XA Unspecified injury of head, initial encounter (principal); W01.198A Fall on same level from slipping, tripping and stumbling with subsequent striking against other object, initial encounter; I10 Essential (primary) hypertension; F10.10 Alcohol abuse, uncomplicated; Y92.009 Unspecified place in unspecified non-institutional (private) residence as the place of occurrence of the external cause; Y93.89 Activity, other specified; Y99.9 Unspecified external cause status; Z88.0 Allergy status to penicillin; Z86.79 Personal history of other diseases of the circulatory system; Z79.52 Long term (current) use of systemic steroids; Z79.01 Long term (current) use of anticoagulants; Z79.02 Long term (current) use of antithrombotics/antiplatelets; Z79.899 Other long term (current) drug therapy

== ENCOUNTER → 2024-09-29 | Outpatient (REF) | payer BC ==
[2024-09-29 14:01] LABS: APPEARANCE, URINE HAZY (CLEAR); BACTERIA, URINE AUTO NEGATIVE (NEGATIVE); BILIRUBIN, URINE AUTO NEGATIVE (NEGATIVE); BLOOD, URINE BLOOD NEGATIVE (NEGATIVE); GLUCOSE, URINE (UA) AUTO NEGATIVE (NEGATIVE); KETONE, URINE AUTO NEGATIVE (NEGATIVE); LEUKOCYTE ESTERASE, URINE AUTO 1+ (NEGATIVE); MUCUS, URINE SMALL (NEGATIVE); NITRITE, URINE AUTO NEGATIVE (NEGATIVE); PROTEIN, URINE AUTO NEGATIVE (NEGATIVE); RBC, URINE AUTO 1 /HPF (0-3); SPECIFIC GRAVITY URINE AUTO 1.008 (1.002-1.035); SQUAMOUS EPITHELIAL CELL UR AU 2 /HPF (0-6); UROBILINOGEN, URINE AUTO 0.2 mg/dL (0.0-2.0); WBC, URINE AUTO 6 /HPF (0-3)
== END ==
LOC: M SFHCADAM 12:58
PROVIDERS: ATTEND Physician Assistant
DX: N39.41 Urge incontinence (principal)

== ENCOUNTER → 2024-11-16 | Outpatient (REF) | payer BC ==
[2024-11-18 15:27] LABS: HPV APTIMA Not Detected (Not Detected)
== END ==
LOC: M SFHCWAGY 15:55
PROVIDERS: ATTEND Physician Assistant
DX: Z12.4 Encounter for screening for malignant neoplasm of cervix (principal); Z77.9 Other contact with and (suspected) exposures hazardous to health
CPT/HCPCS: 87624; G0123

== ENCOUNTER → 2024-12-14 | Outpatient (CLI) | payer BC | LOC: M PLAIMG 12:43 | PROVIDERS: ATTEND Nurse Practitioner Adult Health | DX: R06.02 Shortness of breath (principal) ==

== ENCOUNTER → 2024-12-20 | Outpatient (REF) | payer BC ==
[2024-12-20 17:34] LABS: ALT/SGPT 34.0 U/L (7.0-40); AST/SGOT 21.0 U/L (<34); CALCIUM LEVEL 9.1 MG/DL (8.3-10.6); CARBON DIOXIDE LEVEL 29.0 MMOL/L (20-31); CHLORIDE LEVEL 103.0 MMOL/L (98-107); CREATININE FOR GFR 0.82 MG/DL (0.55-1.30); GLOMERULAR FILTRATION RATE 81.3 (>45); POTASSIUM SERUM 4.7 MMOL/L (3.5-5.1); SODIUM LEVEL 143.0 MMOL/L (136-145)
[2024-12-20 17:36] LABS: BASO # 0.1 10^3/uL (0.0-0.2); BASO % 0.6 % (0.0-1.0); EOS # 0.3 10^3/uL (0.0-0.5); EOS % 2.6 % (0.0-3.0); LYMPH # 1.8 10^3/uL (1.5-5.0); LYMPH % 15.0 % (24.0-44.0); MONO # 0.9 10^3/uL (0.0-0.8); MONO % 7.3 % (2.0-8.0); NEUTROPHILS # 8.7 10^3/uL (1.5-8.5); NEUTROPHILS % 73.7 % (36.0-66.0); PLATELET COUNT, AUTOMATED 300 10^3/uL (150-450)
== END ==
LOC: M SFHCADAM 14:55
PROVIDERS: ATTEND Family Medicine
DX: R06.00 Dyspnea, unspecified (principal); R60.0 Localized edema

== ENCOUNTER → 2024-12-22 | Outpatient (CLI) | payer BC | LOC: M RAD 09:13 | PROVIDERS: ATTEND Nurse Practitioner Adult Health | DX: R06.02 Shortness of breath (principal) ==